=== PATIENT | male | born 1935 | race Caucasian/White ===

== ENCOUNTER 2023-05-18 13:31 | Outpatient (AMB) | payer MEDICARE, SELFPAY ==
--- NOTE | 2023-05-18 13:54 | HO.NEPHOV_ITS ---
HPI HPI Comments History of Present Illness Details I had the privilege of seeing Grayson in follow-up of his chronic kidney disease. He feels well. He is not a diabetic. He has been having prostatic issues. He denies hematuria, edema. His blood pressure has been well controlled. He avoids nonsteroidal inflammatory medications, maintain good hydration and take low-sodium diet. His serum creatinine has been stable. [facility] Medical History (Updated 05/31/23 @ 22:08 by Maurilio Busch MD) Benign prostatic hyperplasia Chronic kidney disease, stage 3a Surgical History (Updated 05/18/23 @ 13:52 by Kate Thomason MA) History of appendectomy Social History (Updated 05/18/23 @ 14:00 by Kate Thomason MA) Alcohol intake: never Patient Tobacco Use Status: Never used Tobacco Vital Signs 05/18/23 13:55 Height 5 ft 6 in Weight 130 lb BMI 21.0 BP 162/80 H Blood Pressure Location Lt brachial Position Sitting Pulse 78 Pulse Source Pulse Oximeter Physical Exam Vital Signs: Last Vital Signs Pulse 78 05/18/23 13:55 BP 162/80 H 05/18/23 13:55 BMI result Body Mass Index 21.0 Const General: comfortable and no acute distress Orientation/consciousness: patient oriented x3 HEENT Head: Yes normocephalic Mouth: Normal oral and palatal mucosa present Eyes EOM: EOMs intact bilaterally Neck Neck: Yes supple Resp Auscultation: clear to auscultation bilaterally Cardio Jugular venous distension: no JVD Rate: regular rate GI Palpation (GI): Soft to palpation Auscultation: normal bowel sounds General: Yes no CVA tenderness Back/Spine/Pelvis Back: no CVA tenderness Skin General skin exam: no rashes or lesions noted Neuro General: patient oriented x3 and moves all extremities Extrem General: Yes no pedal edema Assessment & Plan Assessment & Plan (1) Chronic kidney disease, stage 3a: Code(s): N18.31 - Chronic kidney disease, stage 3a (2) Hypertension: Code(s): I10 - Essential (primary) hypertension Qualifiers: Hypertension type: primary hypertension Qualified Code(s): I10 - Essential (primary) hypertension (3) Benign prostatic hyperplasia: Code(s): N40.0 - Benign prostatic hyperplasia without lower urinary tract symptoms Plan Graysno has 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 His serum creatinine is stable. His ultrasound was normal. His CKD workup had been negative so far. He is on Flomax the dose of which I had increased today due to lack of improvement in symptoms. He avoids nonsteroidal anti-inflammatories. I did not make any other medication changes today. Answered all questions. Follow-up lab work ordered. Follow-up appointment given. Medications: New tamsulosin Take it in the evening 0.8 mg (2 x 0.4 mg) PO DAILY 180 caps 3RF 90 days amlodipine 5 mg PO DAILY 90 tabs 3RF 90 days Coding Level of Care Code Est Pt Level 4 (48422) Diagnoses Chronic kidney disease, stage 3a N18.31 Primary hypertension I10 Hypertension type: primary hypertension Benign prostatic hyperplasia N40.0 Results Reviewed Nephrology Results: No Data to Display
[2023-05-18 13:55] VITALS: BP 162/80; PULSE 78; BMI 21.0
== END 2023-05-18 14:21 | disposition home or self-care (01) ==
PROVIDERS: PCP Internal Medicine; Visit Provider Internal Medicine Nephrology
DX: N18.31 Chronic kidney disease, stage 3a (principal); I10 Essential (primary) hypertension; N40.0 Benign prostatic hyperplasia without lower urinary tract symptoms
CPT/HCPCS: 99214

== ENCOUNTER → 2023-05-18 13:31 | Outpatient (BNVA) | payer MEDICARE, SELFPAY | PROVIDERS: PCP Internal Medicine; Visit Provider Internal Medicine Nephrology | DX: I12.9 Hypertensive chronic kidney disease with stage 1 through stage 4 chronic kidney disease, or unspecified chronic kidney disease (principal); N18.31 Chronic kidney disease, stage 3a | CPT/HCPCS: 99212 ==

== ENCOUNTER 2023-07-06 09:34 | Outpatient (REF) | payer MEDICARE, SELFPAY ==
[2023-07-06 12:56] LABS: Appearance Urine Clear; Color Urine Yellow; Glucose Urine UA Negative (Negative); Leukocyte Esterase Urine Small (1+) (Negative); Nitrite Urine Negative (Negative); Specific Gravity - Urine 1.015 (1.005-1.025); UMIC TRIGGER UA YES; Urine Blood Negative (Negative); Urine Ketones Negative (Negative); Urine Protein Negative (Neg-Trace)
[2023-07-06 12:58] LABS: Bacteria Urine None Seen (None Seen); Hyaline Casts Urine 0-2 /LPF (0-2); RBC Urine 0-2 /HPF (0-2); Squamous Epithelial Cell Urine 0-2 /HPF (0-2)
[2023-07-06 13:34] LABS: Anion Gap 9 (12-20); Blood Urea Nitrogen 18 mg/dL (9-16); Calcium 9.1 mg/dL (8.4-10.2); Carbon Dioxide 27 mmol/L (22-29); Chloride 108 mmol/L (96-108); Estimated Glomerular Filt Rate 48; Potassium 4.1 mmol/L (3.3-5.1); Sodium 140 mmol/L (135-145)
[2023-07-06 15:14] LABS: PSA,Total (Free>4and<10) 1.69 ng/mL (0.00-4.00)
== END 2023-07-06 09:35 | disposition home or self-care (01) ==
LOC: HO.HKASLDS 09:34
PROVIDERS: Visit Provider Internal Medicine Nephrology
DX: I12.9 Hypertensive chronic kidney disease with stage 1 through stage 4 chronic kidney disease, or unspecified chronic kidney disease (principal); N18.31 Chronic kidney disease, stage 3a; N40.0 Benign prostatic hyperplasia without lower urinary tract symptoms; Z12.5 Encounter for screening for malignant neoplasm of prostate
CPT/HCPCS: 36415; 80051; 81001; 82310; 82565; 84153; 84520; 87086

== ENCOUNTER → 2023-07-30 08:58 | Outpatient (BNVA) | payer MEDICARE, SELFPAY | PROVIDERS: PCP Internal Medicine; Visit Provider Nurse Practitioner Family | DX: N39.43 Post-void dribbling (principal); R39.9 Unspecified symptoms and signs involving the genitourinary system | CPT/HCPCS: 51798; 81003; 99202 ==

== ENCOUNTER 2023-07-30 09:07 | Outpatient (AMB) | payer MEDICARE, SELFPAY ==
--- NOTE | 2023-07-30 09:08 | A.OFFVIS_ITS ---
Intake Intake Visit Reasons: BHP CKD, stage 3 Intake Note: New Patient presents for initial visit for BPH Urology Medications: tamsulosin Blood Thinner: none PVR: 43ml Checkout Supervisor Required: No Accompanied by: Self / Same As Patient Allergies house dust Allergy (Verified 07/30/23 09:39) Unknown mold Allergy (Verified 07/30/23 09:39) Unknown Medication List - Last Reconciled 07/30/23 by Nay Rai, [facility]- amlodipine 5 mg PO DAILY 90 days ergocalciferol (vitamin D2) 1,250 mcg PO QWEEK folic acid 1 mg PO DAILY levothyroxine 175 mcg PO QAM tamsulosin 0.8 mg (2 x 0.4 mg) PO DAILY 90 days HPI HPI Comments History of Present Illness Details Grayson is an 87-year-old male patient of Dr. Grewal. He has a past medical history of BPH and chronic kidney disease. He presents to the office today as a new patient for urinary dribbling. He reports symptoms have been present for quite some time however feels they continue to worsen. He reports being prescribed Flomax by his trestle mechanic Dr. Tavares and feels this has been helpful with his weak stream however he continues with urinary dri bbling and intermittent episodes of dysuria with initiation of urinary stream. He otherwise denies urinary urgency, urinary frequency, incontinence, hematuria, foul smelling urine, flank pain, fever, and or chills. He does report episodes of nocturia however relates this to his increased consumption of fluids prior to bed. In discussion with the patient today regarding treatment options for lower urinary tract symptoms he discusses feeling that although he experiences these symptoms he does not feel they are bothersome. Discussed obtaining retroperitoneal ultrasound for further assessment evaluation. In office urinalysis results reviewed with the patient today. PVR 43ml's. He discusses feeling his main concern is his who lives in a assisted living. He otherwise denies any other issues or concerns at this time. In review of patient's chart it appears PSA 07/07--1.7 PFSH Medical History Benign prostatic hyperplasia Chronic kidney disease, stage 3a Surgical History History of appendectomy Social History Alcohol intake: never Patient Tobacco Use Status: Never used Tobacco Review of Systems Const All systems reviewed & are unremarkable except as noted in HPI and below Physical Exam Const General: cooperative, comfortable, no acute distress, well developed, alert and awake Nutritional Appearance: thin Orientation/consciousness: patient oriented x3 HEENT Head: Yes normal to inspection, Yes normocephalic and Yes atraumatic Ears: hearing grossly normal bilaterally Eyes General: appearance normal, both eyes and all related structures Neck Neck: Yes normal visual inspection and Yes trachea midline Chest Chest palpation & inspection: normal inspection of the chest Resp Effort & Inspection: normal respiratory effort and able to speak in complete sentences Cardio Rate: regular rate GI Inspection: Yes normal to inspection General: Yes no CVA tenderness Back/Spine/Pelvis Back: no CVA tenderness Skin General skin exam: no rashes or lesions noted Neuro General: patient oriented x3 Extrem General: Yes normal to inspection Psych Appearance: grossly normal and well kempt Mental Status: mental status grossly normal Speech and movement: Normal speech and movement present and Clear speech present Affect: normal affect Attitude: cooperative Thought process: Normal thought process present Thought content: Normal thought content present Insight: Fair insight present (Psych) Judgement: Fair judgement present (Psych) Office Procedures Post Void Residual Post Residual Void Post Void Residual (PVR): 43 [id number] Void Residual by ultrasound Results AMB Urinalysis, Automated UA Leukoctes 0 Osman/uL Last Edit by Sonya Barajas CMA on 07/30/23 09 :26 UA Nitrite Negative Last Edit by Sonya Barajas CMA on 07/30/23 09: 26 UA Urobilinogen 0.2 mg/dL Last Edit by Sonya Barajas CMA on 4 09:26 UA Protein 15 mg/dL Last Edit by Sonya Barajas CMA on 07/30/23 09:2 6 UA pH 6.0 Last Edit by Sonya Barajas CMA on 07/30/23 09:26 UA Blood 0 Kal/uL Last Edit by Sonya Barajas CMA on 07/30/23 09:26 UA Specific [place] 1.030 Last Edit by Sonya Barajas CMA on 09:26 UA Ketone Negative Last Edit by Sonya Barajas CMA on 07/30/23 09:2 6 UA Bilirubin 1 mg/dL Last Edit by Sonya Barajas CMA on 07/30/23 09: 26 UA Glucose 0 mg/dL Last Edit by Sonya Barajas CMA on 07/30/23 09:26 Results Reviewed Results Reviewed: Laboratory Last Values Urine pH (Auto) 6.0 07/30/23 09:10 Specific [place] (Auto) 1.030 07/30/23 09:10 Urine Protein (Auto) 15 mg/dL 07/30/23 09:10 Glucose (UA)(Auto) 0 mg/dL 07/30/23 09:10 Urine Ketones (Auto) Negative 07/30/23 09:10 Urine Blood (Auto) 0 Kal/uL 07/30/23 09:10 Urine Nitrite (Auto) Negative 07/30/23 09:10 Urine Bilirubin (Auto) 1 mg/dL 07/30/23 09:10 Urine Urobilinogen (Auto) 0.2 mg/dL 07/30/23 09:10 Leukocyte Esterase (Auto) 0 Osman/uL 07/30/23 09:10 Assessment & Plan Assessment & Plan (1) Urinary dribbling: Code(s): N39.43 - Post-void dribbling (2) Lower urinary tract symptoms: Code(s): R39.9 - Unspecified symptoms and signs involving the genitourinary system Plan In office urinalysis results reviewed with the patient today; as noted above. Recent PSA results reviewed with the patient today; as noted above. PVR 43ml's Continue Flomax as discussed and prescribed. Will obtain retroperitoneal ultrasound for further assessment evaluation. Discussed potential for near future in office cystoscopy for further assessment evaluation and or urodynamics. Discussed at length potential causes for lower urinary tract symptoms patient is experiencing. Discussed importance of limiting fluids 2-3 hours prior to bed to assist with decreasing episodes of nocturia. Orders: Orders US retroperitoneal comp 07/30/23 N39.43 - Post-void dribbling AMB Urinalysis Automated 07/30/23 R33.9 - Retention of urine, unspecified AMB Post Void Residual by ultrasound 07/30/23 R33.9 - Retention of urine, unspecified Patient Instructions: The patient had an opportunity to ask questions regarding the treatment plan. All questions were answered. Physical exam, labs, and imaging were discussed and reviewed in detail. As well as risks, benefits, and discussion of treatment choices. No major barriers to understanding were identified. The patient express ed understanding and agreement with the above treatment plan. The patient was made aware they should contact our office by phone for worsening of their current condition, the appearance of new symptoms, or with any questions or concerns. Compliance is encouraged with any medications and follow up testing that is ordered. It is a privilege to be allowed the opportunity to participate in? your urological care.? Again, if you have any questions or concerns If you have any questions or concerns please do not hesitate to contact me. The office is [phone]. This note is constructed using voice recognition software. While every effort has been made to ensure accuracy electronics parts sales representative errors may have been included. Yours sincerely, GALINA Appiah Coding Level of Care Code New Pt Level 3 (11039) Diagnoses Urinary dribbling N39.43 Lower urinary tract symptoms R39.9 CPT Codes Post Residual Void - PVR CPT Code: [id number]-[id number] Void Residual by ultrasound ([id number])
== END 2023-07-30 10:11 | disposition home or self-care (01) ==
PROVIDERS: PCP Internal Medicine; Visit Provider Nurse Practitioner Family
DX: N39.43 Post-void dribbling (principal); R39.9 Unspecified symptoms and signs involving the genitourinary system
CPT/HCPCS: 99203; 99213

== ENCOUNTER 2023-09-14 11:15 | Outpatient (REF) | payer MEDICARE, SELFPAY ==
--- NOTE | ~2023-09-14 | US_ITS ---
EXAMINATION: US RETROPERITONEAL LIMITED (RENAL ONLY) CLINICAL INFORMATION: Postvoid dribbling. COMPARISON: None available. TECHNIQUE: Real-time imaging of the kidneys. FINDINGS: RIGHT KIDNEY: 9.4 x 4.5 x 4.6 cm (SAG x AP x TRV). The kidney is normal in size, contour, and echogenicity. Renal cortical thickness is normal. No calculi or focal parenchymal lesions. No hydronephrosis. LEFT KIDNEY: 9.3 x 4.6 x 4.1 cm (SAG x AP x TRV). The kidney is normal in size, contour, and echogenicity. Renal cortical thickness is normal. No calculi or focal parenchymal lesions. No hydronephrosis. There is a hypertrophic column of [place]. US/US renal BI IMPRESSION: Unremarkable examination.
== END 2023-09-14 11:16 | disposition home or self-care (01) ==
LOC: HO.US 11:15
PROVIDERS: PCP Internal Medicine; Visit Provider Nurse Practitioner Family
DX: N39.43 Post-void dribbling (principal)
CPT/HCPCS: 76775

== ENCOUNTER 2023-09-15 14:12 | Outpatient (REF) | payer MEDICARE, SELFPAY ==
--- NOTE | ~2023-09-15 | US_ITS ---
EXAMINATION: US PELVIS LIMITED (BLADDER) CLINICAL INFORMATION: Urinary dribbling. COMPARISON: September 14, 2023 renal ultrasound TECHNIQUE: Real-time imaging of the bladder. FINDINGS: BLADDER: Well-distended and unremarkable. Bilateral ureteral jets are demonstrated. Prevoid bladder volume is 476 mL. Postvoid bladder volume is 294 mL. Prostate volume 21.2 mL. US/US bladder IMPRESSION: Postvoid bladder volume 294 mL.
== END 2023-09-15 14:13 | disposition home or self-care (01) ==
LOC: HO.US 14:12
PROVIDERS: PCP Internal Medicine; Visit Provider Nurse Practitioner Family
DX: N39.43 Post-void dribbling (principal)
CPT/HCPCS: 76857

== ENCOUNTER 2023-09-21 14:47 | Outpatient (AMB) | payer MEDICARE, SELFPAY ==
[2023-09-21 14:54] VITALS: BP 130/70; PULSE 63; O2SAT 96; BMI 21.8
--- NOTE | 2023-09-21 14:54 | HO.NEPHOV ---
HPI HPI Comments History of Present Illness Details I had the privilege of seeing Grayson in follow-up of his chronic kidney disease. He feels well. He is not a diabetic. He has been having prostatic issues which has improved after increase in Flomax. He denies hematuria, edema. His blood pressure has been well controlled. He avoids nonsteroidal inflammatory medications, maintain good hydration and take low-sodium diet. His serum creatinine has been stable. [facility] Medical History Benign prostatic hyperplasia Chronic kidney disease, stage 3a Surgical History History of appendectomy Social History Alcohol intake: never Patient Tobacco Use Status: Never used Tobacco Vital Signs 09/21/23 14:54 Height 5 ft 6 in Weight 135 lb 6 oz BMI 21.8 BP 130/70 Blood Pressure Location Lt brachial Position Sitting Pulse 63 Pulse Source Pulse Oximeter Pulse Oximetry (%) 96 Oxygen Delivery Method Room Air Physical Exam Vital Signs: Last Vital Signs Pulse 63 09/21/23 14:54 BP 136/70 09/21/23 14:54 Pulse Ox 96 09/21/23 14:54 Oxygen Delivery Method Room Air 09/21/23 14:54 BMI result Body Mass Index 21.8 Const General: comfortable and no acute distress Orientation/consciousness: patient oriented x3 HEENT Head: Yes normocephalic Mouth: Normal oral and palatal mucosa present Eyes EOM: EOMs intact bilaterally Neck Neck: Yes supple Resp Auscultation: clear to auscultation bilaterally Cardio Jugular venous distension: no JVD Rate: regular rate GI Palpation (GI): Soft to palpation Auscultation: normal bowel sounds General: Yes no CVA tenderness Back/Spine/Pelvis Back: no CVA tenderness Skin General skin exam: no rashes or lesions noted Neuro General: patient oriented x3 and moves all extremities Extrem General: Yes no pedal edema Assessment & Plan Assessment & Plan (1) Hypertension: Code(s): I10 - Essential (primary) hypertension Qualifiers: Hypertension type: primary hypertension Qualified Code(s): I10 - Essential (primary) hypertension (2) Chronic kidney disease, stage 3a: Code(s): N18.31 - Chronic kidney disease, stage 3a Plan Grayson has 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 His serum creatinine is stable. His ultrasound was normal. His CKD workup had been negative so far. He is on Flomax the dose of which I had increased at the last visit . He avoids nonsteroidal anti-inflammatories. I did not make any other medication changes today. Answered all questions. Follow-up lab work ordered. Follow-up appointment given. Orders: Orders Creatinine Today I10 - Essential (primary) hypertension, N18.31 - Chronic kidney disease, stage 3a Blood Urea Nitrogen Today I10 - Essential (primary) hypertension, N18.31 - Chronic kidney disease, stage 3a Electrolytes Today I10 - Essential (primary) hypertension, N18.31 - Chronic kidney disease, stage 3a Complete Blood Count Auto Diff Today I10 - Essential (primary) hypertension, N18.31 - Chronic kidney disease, stage 3a Phosphorus Today I10 - Essential (primary) hypertension, N18.31 - Chronic kidney disease, stage 3a Calcium Today I10 - Essential (primary) hypertension, N18.31 - Chronic kidney disease, stage 3a Coding Level of Care Code Est Pt Level 4 (89627) Diagnoses Primary hypertension I10 Hypertension type: primary hypertension Chronic kidney disease, stage 3a N18.31 Results Reviewed Nephrology Results: Sodium 140 mmol/L (135-145) 07/06/23 Potassium 4.1 mmol/L (3.3-5.1) 07/06/23 Chloride 108 mmol/L (96-108) 07/06/23 Carbon Dioxide 27 mmol/L (22-29) 07/06/23 BUN 18 mg/dL (9-16) H 07/06/23 Creatinine 1.40 mg/dL (0.5-1.4) 07/06/23 Calcium 9.1 mg/dL (8.4-10.2) 07/06/23 Urine Protein Negative mg/dL (Neg-Trace) 07/06/23 Renal US 09/14/23
== END 2023-09-21 15:17 | disposition home or self-care (01) ==
PROVIDERS: PCP Internal Medicine; Visit Provider Internal Medicine Nephrology
DX: I10 Essential (primary) hypertension (principal); N18.31 Chronic kidney disease, stage 3a
CPT/HCPCS: 99214

== ENCOUNTER → 2023-09-21 14:47 | Outpatient (BNVA) | payer MEDICARE, SELFPAY | PROVIDERS: PCP Internal Medicine; Visit Provider Internal Medicine Nephrology | DX: I10 Essential (primary) hypertension (principal); N18.31 Chronic kidney disease, stage 3a | CPT/HCPCS: 99212 ==

== ENCOUNTER 2023-09-28 13:37 | Outpatient (AMB) | payer MEDICARE, SELFPAY ==
--- NOTE | 2023-09-28 13:39 | A.OFFVIS_ITS ---
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 Grewal. He has a past medical history of BPH and chronic kidney disease. He presents to the office today for follow-up of his urinary dribbling and weak urinary stream. Of note, patient was seen approximately 2 months ago as a new patient for ongoing lower urinary tract symptoms he had been experiencing at which time a retroperitoneal ultrasound was ordered and his Flomax was increased to 2 capsules per day. Recent retroperitoneal ultrasound results reviewed with the patient today. Bilateral kidneys with no calculi, lesions, and or hydronephrosis. The bladder is well distended and unremarkable. Pre void bladder volume is approximately 475 mL. Postvoid bladder volume is 300 mL. Prostate volume measures approximately 21 mL. He reports noting somewhat improvement in his lower urinary tract symptoms with increase in Flomax. Discussed at length potential causes and affects of incomplete bladder emptying. He otherwise denies urinary urgency, urinary frequency, incontinence, hematuria, foul smelling urine, flank pain, fever, and or chills. He does report episodes of nocturia however relates this to his increased consumption of fluids prior to bed. In office urinalysis results reviewed with the patient today. PVR 4mml's. He discusses feeling his main concern is his who lives in a assisted living. He otherwise denies any other issues or concerns at this time. In review of patient's chart it appears PSA 07/07--1.7. PFSH Medical History Benign prostatic hyperplasia Chronic kidney disease, stage 3a Surgical History History of appendectomy Social History Alcohol intake: never Patient Tobacco Use Status: Never used Tobacco Review of Systems Const All systems reviewed & are unremarkable except as noted in HPI and below Physical Exam Const General: cooperative, comfortable, no acute distress, well developed, alert and awake Nutritional Appearance: thin Orientation/consciousness: patient oriented x3 HEENT Head: Yes normal to inspection, Yes normocephalic and Yes atraumatic Ears: hearing grossly normal bilaterally Eyes General: appearance normal, both eyes and all related structures Neck Neck: Yes normal visual inspection and Yes trachea midline Chest Chest palpation & inspection: normal inspection of the chest Resp Effort & Inspection: normal respiratory effort and able to speak in complete sentences Cardio Rate: regular rate GI Inspection: Yes normal to inspection General: Yes no CVA tenderness Back/Spine/Pelvis Back: no CVA tenderness Skin General skin exam: no rashes or lesions noted Neuro General: patient oriented x3 Extrem General: Yes normal to inspection Psych Appearance: grossly normal and well kempt Mental Status: mental status grossly normal Speech and movement: Normal speech and movement present and Clear speech present Affect: normal affect Attitude: cooperative Thought process: Normal thought process present Thought content: Normal thought content present Insight: Fair insight present (Psych) Judgement: Fair judgement present (Psych) Office Procedures Post Void Residual Post Residual Void Post Void Residual (PVR): 48 [id number] Void Residual by ultrasound Results AMB Urinalysis, Automated UA Leukoctes 0 Osman/uL Last Edit by Santiago Paris on 09/28/23 13:57 UA Nitrite Negative Last Edit by Santiago Paris on 09/28/23 13:57 UA Urobilinogen 0.2 mg/dL Last Edit by Santiago Paris on 09/28/23 13:57 UA Protein 0 mg/dL Last Edit by Santiago Paris on 09/28/23 13:57 UA pH 6.0 Last Edit by Santiago Paris on 09/28/23 13:57 UA Blood 0 Kal/uL Last Edit by Santiago Paris on 09/28/23 13:57 UA Specific [place] 1.005 Last Edit by Santiago Paris on 09/28/23 13:57 UA Ketone Negative Last Edit by Santiago Paris on 09/28/23 13:57 UA Bilirubin 0 mg/dL Last Edit by Santiago Paris on 09/28/23 13:57 UA Glucose 0 mg/dL Last Edit by Santiago Paris on 09/28/23 13:57 Results Reviewed Results Reviewed: Laboratory Last Values Urine pH (Auto) 6.0 09/28/23 13:47 Specific [place] (Auto) 1.005 09/28/23 13:47 Urine Protein (Auto) 0 mg/dL 09/28/23 13:47 Glucose (UA)(Auto) 0 mg/dL 09/28/23 13:47 Urine Ketones (Auto) Negative 09/28/23 13:47 Urine Blood (Auto) 0 Kal/uL 09/28/23 13:47 Urine Nitrite (Auto) Negative 09/28/23 13:47 Urine Bilirubin (Auto) 0 mg/dL 09/28/23 13:47 Urine Urobilinogen (Auto) 0.2 mg/dL 09/28/23 13:47 Leukocyte Esterase (Auto) 0 Osman/uL 09/28/23 13:47 Date of Service: 09/14/23 EXAMINATION: US RETROPERITONEAL LIMITED (RENAL ONLY) FINDINGS: RIGHT KIDNEY: 9.4 x 4.5 x 4.6 cm (SAG x AP x TRV). The kidney is normal in size, contour, and echogenicity. Renal cortical thickness is normal. No calculi or focal parenchymal lesions. No hydronephrosis. LEFT KIDNEY: 9.3 x 4.6 x 4.1 cm (SAG x AP x TRV). The kidney is normal in size, contour, and echogenicity. Renal cortical thickness is normal. No calculi or focal parenchymal lesions. No hydronephrosis. There is a hypertrophic column of [place]. IMPRESSION: Unremarkable examination. Date of Service: 09/15/23 Procedure(s): US bladder EXAMINATION: US PELVIS LIMITED (BLADDER) FINDINGS: BLADDER: Well-distended and unremarkable. Bilateral ureteral jets are demonstrated. Prevoid bladder volume is 476 mL. Postvoid bladder volume is 294 mL. Prostate volume 21.2 mL. IMPRESSION: Postvoid bladder volume 294 mL. Assessment & Plan Assessment & Plan (1) Lower urinary tract symptoms: Code(s): R39.9 - Unspecified symptoms and signs involving the genitourinary system (2) Benign prostatic hyperplasia: Code(s): N40.0 - Benign prostatic hyperplasia without lower urinary tract symptoms (3) Incomplete bladder emptying: Code(s): R33.9 - Retention of urine, unspecified (4) Weak urinary stream: Code(s): R39.12 - Poor urinary stream Plan In office urinalysis results reviewed with the patient today; as noted above. PVR 48 mL. Stop Flomax. Start terazosin 5 mg at bedtime. Discussed at length potential causes and affects of incomplete bladder emptying. Most recent retroperitoneal ultrasound results reviewed with the patient today; as noted above. Discussed possible near future in office cystoscopy if symptoms persist and/or worsen. Discussed importance of limiting fluids 2-3 hours prior to bed to decrease episodes of nocturia. Follow-up in 6-8 weeks with PVR; or sooner with any issues, concerns, and or questions. Orders: Orders AMB Post Void Residual by ultrasound Today R39.9 - Unspecified symptoms and signs involving the genitourinary system AMB Urinalysis Automated Today R39.9 - Unspecified symptoms and signs involving the genitourinary system, Z13.9 - Encounter for screening, unspecified Medications: New terazosin 5 mg PO BEDTIME 30 caps 2RF 30 days N40.1 - Benign prostatic hyperplasia with lower urinary tract symptoms, R35.0 - Frequency of micturition Discontinued tamsulosin Take it in the evening Discontinued Reason: Doctor's Order 0.8 mg (2 x 0.4 mg) PO DAILY 180 caps 3RF 90 days Patient Instructions: The patient had an opportunity to ask questions regarding the treatment plan. All questions were answered. Physical exam, labs, and imaging were discussed and reviewed in detail. As well as risks, benefits, and discussion of treatment choices. No major barriers to understanding were identified. The patient expressed understanding and agreement with the above treatment plan. The patient was made aware they should contact our office by phone for worsening of their current condition, the appearance of new symptoms, or with any questions or concerns. Compliance is encouraged with any medications and follow up testing that is ordered. It is a privilege to be allowed the opportunity to participate in? your urological care.? Again, if you have any questions or concerns If you have any questions or concerns please do not hesitate to contact me. The office is [phone]. This note is constructed using voice recognition software. While every effort has been made to ensure accuracy reeling and tubing machine operator errors may have been included. Yours sincerely, GALINA Appiah Coding Level of Care Code Est Pt Level 4 (76382) Diagnoses Lower urinary tract symptoms R39.9 Benign prostatic hyperplasia N40.0 Incomplete bladder emptying R33.9 Weak urinary stream R39.12 CPT Codes Post Residual Void - PVR CPT Code: 87672-Tngv Void Residual by ultrasound ([id number])
== END 2023-09-28 14:08 | disposition home or self-care (01) ==
PROVIDERS: PCP Internal Medicine; Visit Provider Nurse Practitioner Family
DX: R39.9 Unspecified symptoms and signs involving the genitourinary system (principal); N40.0 Benign prostatic hyperplasia without lower urinary tract symptoms; R33.9 Retention of urine, unspecified; R39.12 Poor urinary stream
CPT/HCPCS: 99214

== ENCOUNTER → 2023-09-28 13:37 | Outpatient (BNVA) | payer MEDICARE, SELFPAY | PROVIDERS: PCP Internal Medicine; Visit Provider Nurse Practitioner Family | DX: N40.1 Benign prostatic hyperplasia with lower urinary tract symptoms (principal); R33.9 Retention of urine, unspecified; R39.12 Poor urinary stream | CPT/HCPCS: 51798; 81003; 99212 ==

== ENCOUNTER 2023-11-23 13:29 | Outpatient (AMB) | payer MEDICARE, SELFPAY ==
--- NOTE | 2023-11-23 13:52 | MHC.OFFVIS ---
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 Grewal. He has a past medical history of BPH and chronic kidney disease. He presents to the office today for follow-up of his urinary dribbling and weak urinary stream. In discussion with the patient today he reports to be doing and feeling well. He reports feeling somewhat improvement in his lower urinary tract symptoms with terazosin 5 mg at bedtime. Previous workup has included a retroperitoneal ultrasound noting bilateral kidneys with no calculi, lesions, and or hydronephrosis. The bladder is well distended and unremarkable. Pre void bladder volume is approximately 475 mL. Postvoid bladder volume is 300 mL. Prostate volume measures approximately 21 mL. He had previously trialed Flomax however did not find this helpful. In office urinalysis results reviewed with the patient today. PVR 0 mL. PH 5.5. Discussed importance of adequate hydration. He otherwise denies urinary urgency, urinary frequency, incontinence, hematuria, foul smelling urine, flank pain, fever, and or chills. He otherwise denies any other issues or concerns at this time. In review of patient's chart it appears PSA 07/07--1.7. PFSH Medical History Benign prostatic hyperplasia Chronic kidney disease, stage 3a Surgical History History of appendectomy Social History Alcohol intake: never Patient Tobacco Use Status: Never used Tobacco Review of Systems Const All systems reviewed & are unremarkable except as noted in HPI and below Physical Exam Const General: cooperative, healthy appearing, comfortable, no acute distress, well developed, alert and awake Nutritional Appearance: thin Orientation/consciousness: patient oriented x3 Limitations: no limitations HEENT Head: Yes normal to inspection, Yes normocephalic and Yes atraumatic Ears: hearing grossly normal bilaterally Eyes General: appearance normal, both eyes and all related structures Neck Neck: Yes normal visual inspection and Yes trachea midline Chest Chest palpation & inspection: normal inspection of the chest Resp Effort & Inspection: normal respiratory effort and able to speak in complete sentences Cardio Rate: regular rate GI Inspection: Yes normal to inspection General: Yes no CVA tenderness Back/Spine/Pelvis Back: no CVA tenderness Skin General skin exam: no rashes or lesions noted Neuro General: patient oriented x3 Extrem General: Yes normal to inspection Psych Appearance: grossly normal and well kempt Mental Status: mental status grossly normal Speech and movement: Normal speech and movement present and Clear speech present Affect: normal affect Attitude: cooperative Thought process: Normal thought process present Thought content: Normal thought content present Insight: Fair insight present (Psych) Judgement: Fair judgement present (Psych) Office Procedures Post Void Residual Post Residual Void Post Void Residual (PVR): 0 [id number] Void Residual by ultrasound Results AMB Urinalysis, Automated UA Leukoctes 15 Osman/uL Last Edit by Coltello Ristorante on 11/23/23 14:03 UA Nitrite Negative Last Edit by Coltello Ristorante on 11/23/23 14:03 UA Urobilinogen 0.2 mg/dL Last Edit by Coltello Ristorante on 11/23/23 14:03 UA Protein 15 mg/dL Last Edit by Coltello Ristorante on 11/23/23 14:03 UA pH 5.5 Last Edit by Coltello Ristorante on 11/23/23 14:03 UA Blood 0 Kal/uL Last Edit by Coltello Ristorante on 11/23/23 14:03 UA Specific [place] 1.025 Last Edit by Coltello Ristorante on 11/23/23 14:03 UA Ketone Positive Last Edit by Coltello Ristorante on 11/23/23 14:03 UA Bilirubin 1 mg/dL Last Edit by Coltello Ristorante on 11/23/23 14:03 UA Glucose 0 mg/dL Last Edit by Santiago Paris on 11/23/23 14:03 Results Reviewed Results Reviewed: Laboratory Last Values Urine pH (Auto) 5.5 11/23/23 13:55 Specific [place] (Auto) 1.025 11/23/23 13:55 Urine Protein (Auto) 15 mg/dL 11/23/23 13:55 Glucose (UA)(Auto) 0 mg/dL 11/23/23 13:55 Urine Ketones (Auto) Positive 11/23/23 13:55 Urine Blood (Auto) 0 Akl/uL 11/23/23 13:55 Urine Nitrite (Auto) Negative 11/23/23 13:55 Urine Bilirubin (Auto) 1 mg/dL 11/23/23 13:55 Urine Urobilinogen (Auto) 0.2 mg/dL 11/23/23 13:55 Leukocyte Esterase (Auto) 15 Osman/uL 11/23/23 13:55 Assessment & Plan Assessment & Plan (1) Lower urinary tract symptoms: Code(s): R39.9 - Unspecified symptoms and signs involving the genitourinary system Category: Medical (2) Benign prostatic hyperplasia: Code(s): N40.0 - Benign prostatic hyperplasia without lower urinary tract symptoms Category: Medical (3) Incomplete bladder emptying: Code(s): R33.9 - Retention of urine, unspecified Category: Medical (4) Weak urinary stream: Code(s): R39.12 - Poor urinary stream Category: Medical Plan In office urinalysis results reviewed with the patient today; as noted above. PVR 0 mL. Patient currently denies any bothersome urinary issues or concerns. He reports be happy with current voiding parameters on terazosin 5 mg at bedtime; will continue. Discussed possible near future in office cystoscopy if symptoms arise and or worsen. Discussed importance of limiting fluids 2-3 hours prior to bed to decrease episodes of nocturia. Follow-up in 6 months with PSA and PVR; or sooner with any issues, concerns, and or questions. Orders: Orders Prostate Specific Antigen 6 Months N40.0 - Benign prostatic hyperplasia without lower urinary tract symptoms, R33.9 - Retention of urine, unspecified, R39.12 - Poor urinary stream AMB Urinalysis Automated Today Z13.9 - Encounter for screening, unspecified AMB Post Void Residual by ultrasound Today R39.12 - Poor urinary stream Patient Instructions: The patient had an opportunity to ask questions regarding the treatment plan. All questions were answered. Physical exam, labs, and imaging were discussed and reviewed in detail. As well as risks, benefits, and discussion of treatment choices. No major barriers to understanding were identified. The patient expressed understanding and agreement with the above treatment plan. The patient was made aware they should contact our office by phone for worsening of their current condition, the appearance of new symptoms, or with any questions or concerns. Compliance is encouraged with any medications and follow up testing that is ordered. It is a privilege to be allowed the opportunity to participate in? your urological care.? Again, if you have any questions or concerns If you have any questions or concerns please do not hesitate to contact me. The office is [phone]. This note is constructed using voice recognition software. While every effort has been made to ensure accuracy mortgage protection sales errors may have been included. Yours sincerely, GALINA Appiah Coding Level of Care Code Est Pt Level 3 (33404) Diagnoses Lower urinary tract symptoms R39.9 Benign prostatic hyperplasia N40.0 Incomplete bladder emptying R33.9 Weak urinary stream R39.12 CPT Codes Post Residual Void - PVR CPT Code: 47457-Rdqf Void Residual by ultrasound ([id number])
== END 2023-11-23 14:20 | disposition home or self-care (01) ==
PROVIDERS: PCP Internal Medicine; Visit Provider Nurse Practitioner Family
DX: R39.9 Unspecified symptoms and signs involving the genitourinary system (principal); N40.0 Benign prostatic hyperplasia without lower urinary tract symptoms; R33.9 Retention of urine, unspecified; R39.12 Poor urinary stream; Z13.9 Encounter for screening, unspecified
CPT/HCPCS: 99213

== ENCOUNTER → 2023-11-23 13:29 | Outpatient (BNVA) | payer MEDICARE, SELFPAY | PROVIDERS: PCP Internal Medicine; Visit Provider Nurse Practitioner Family | DX: R39.9 Unspecified symptoms and signs involving the genitourinary system (principal); N40.1 Benign prostatic hyperplasia with lower urinary tract symptoms; R33.9 Retention of urine, unspecified; R39.12 Poor urinary stream | CPT/HCPCS: 51798; 81003; 99212 ==

== ENCOUNTER 2024-01-04 14:41 | Outpatient (REF) | payer MEDICARE, SELFPAY ==
[2024-01-04 17:27] LABS: MANUAL DIFF FLAG NO
[2024-01-04 17:35] LABS: Appearance Urine Clear; Color Urine Yellow; Glucose Urine UA Negative (Negative); Leukocyte Esterase Urine Small (1+) (Negative); Nitrite Urine Negative (Negative); PH 6.5 (5.0-9.0); UMIC TRIGGER UA YES; Urine Blood Negative (Negative); Urine Ketones Trace mg/dL (Negative); Urine Protein Trace mg/dL (Neg-Trace)
[2024-01-04 17:41] LABS: Basophils Percent Auto 1.1 % (0-2); Eosinophils Absolute Auto 0.2 X10*3/uL (0.0-0.4); Eosinophils Percent Auto 5.4 % (0-4); Hematocrit 38.3 % (42.0-52.0); Hemoglobin 12.9 g/dl (14.0-18.0); Lymphocytes Percent Auto 27.7 % (20-40); Mean Corpuscular HGB Conc 33.7 g/dl (31.0-36.0); Mean Corpuscular Hemoglobin 31.3 pg (27.0-33.0); Mean Platelet Volume 10.2 fL (9.4-12.4); Monocytes Absolute Auto 0.4 X10*3/uL (0.1-1.2); Monocytes Percent Auto 10.9 % (2-11); Neutrophils Absolute Auto 1.9 x10*3/uL (2.0-8.3); Neutrophils Percent Auto 54.9 % (45-73); Platelet Count 209 X10*3/uL (160-400); Red Blood Count 4.12 X10*6/uL (4.60-5.80); Red Cell Distribution Width 13.6 % (11.0-16.0); White Blood Count 3.5 X10*3/uL (4.8-10.8)
[2024-01-04 17:49] LABS: Anion Gap 12 (12-20); Blood Urea Nitrogen 21 mg/dL (9-16); Calcium 9.1 mg/dL (8.4-10.2); Carbon Dioxide 24 mmol/L (22-29); Chloride 107 mmol/L (96-108); Estimated Glomerular Filt Rate 48; Phosphorus 2.5 mg/dL (2.7-4.5); Potassium 4.5 mmol/L (3.3-5.1); Sodium 138 mmol/L (135-145)
[2024-01-04 18:02] LABS: Bacteria Urine None Seen (None Seen); Hyaline Casts Urine 0-2 /LPF (0-2); RBC Urine 0-2 /HPF (0-2); Squamous Epithelial Cell Urine 0-2 /HPF (0-2); WBC Urine 0-5 /HPF (0-5)
[2024-01-04 18:14] LABS: Prostate Specific Antigen 1.41 ng/mL (<0.05-4.0)
== END 2024-01-04 14:42 | disposition home or self-care (01) ==
LOC: HO.HKASLDS 14:41
PROVIDERS: Nurse Practitioner Family; Visit Provider Internal Medicine Nephrology
DX: I10 Essential (primary) hypertension (principal); N18.31 Chronic kidney disease, stage 3a; N40.0 Benign prostatic hyperplasia without lower urinary tract symptoms; R39.12 Poor urinary stream; R33.9 Retention of urine, unspecified; Z12.5 Encounter for screening for malignant neoplasm of prostate
CPT/HCPCS: 36415; 80051; 81001; 82310; 82565; 84100; 84153; 84520; 85025

== ENCOUNTER 2024-01-18 13:55 | Outpatient (AMB) | payer MEDICARE, SELFPAY ==
--- NOTE | 2024-01-18 14:26 | HO.NEPHOV_ITS ---
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 He feels well. He is not a diabetic. He has been having prostatic issues which has improved after increase in Flomax. He denies hematuria, edema. His blood pressure has been well controlled. He avoids nonsteroidal inflammatory medications, maintain good hydration and take low-sodium diet. His serum creatinine has been stable. [facility] Medical History Benign prostatic hyperplasia Chronic kidney disease, stage 3a Surgical History History of appendectomy Social History Alcohol intake: never Patient Tobacco Use Status: Never used Tobacco Physical Exam Vital Signs: Last Vital Signs Pulse 66 01/18/24 14:27 BP 114/60 01/18/24 14:27 Pulse Ox 96 01/18/24 14:27 Oxygen Delivery Method Room Air 01/18/24 14:27 Const General: comfortable and no acute distress Orientation/consciousness: patient oriented x3 HEENT Head: Yes normocephalic Mouth: Normal oral and palatal mucosa present Eyes EOM: EOMs intact bilaterally Neck Neck: Yes supple Resp Auscultation: clear to auscultation bilaterally Cardio Jugular venous distension: no JVD Rate: regular rate GI Palpation (GI): Soft to palpation Auscultation: normal bowel sounds General: Yes no CVA tenderness Back/Spine/Pelvis Back: no CVA tenderness Skin General skin exam: no rashes or lesions noted Neuro General: patient oriented x3 and moves all extremities Extrem General: Yes no pedal edema Results Reviewed Nephrology Results: Hgb 12.9 g/dl (14.0-18.0) L 01/04/24 WBC 3.5 X10*3/uL (4.8-10.8) L 01/04/24 Plt Count 209 X10*3/uL (160-400) 01/04/24 Sodium 138 mmol/L (135-145) 01/04/24 Potassium 4.5 mmol/L (3.3-5.1) 01/04/24 Chloride 107 mmol/L (96-108) 01/04/24 Carbon Dioxide 24 mmol/L (22-29) 01/04/24 BUN 21 mg/dL (9-16) H 01/04/24 Creatinine 1.39 mg/dL (0.5-1.4) 01/04/24 Calcium 9.1 mg/dL (8.4-10.2) 01/04/24 Phosphorus 2.5 mg/dL (2.7-4.5) L 01/04/24 Urine Protein Trace mg/dL (Neg-Trace) 01/04/24 Renal US 09/14/23 Assessment & Plan Assessment & Plan (1) Chronic kidney disease, stage 3a: Code(s): N18.31 - Chronic kidney disease, stage 3a Category: Medical (2) Hypertension: Code(s): I10 - Essential (primary) hypertension Category: Medical Qualifiers: Hypertension type: primary hypertension Qualified Code(s): I10 - Essential (primary) hypertension Plan Grayson has 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 His serum creatinine is stable. His ultrasound was normal. His CKD workup had been negative so far. He is on Flomax the dose of which I had increased at the last visit . He avoids nonsteroidal anti- inflammatories. I did not make any other medication changes today. Answered all questions. Follow-up lab work ordered. Follow-up appointment given. Orders: Orders Creatinine Today I10 - Essential (primary) hypertension, N18.31 - Chronic kidney disease, stage 3a Blood Urea Nitrogen Today I10 - Essential (primary) hypertension, N18.31 - Chronic kidney disease, stage 3a Electrolytes Today I10 - Essential (primary) hypertension, N18.31 - Chronic kidney disease, stage 3a Coding Level of Care Code Est Pt Level 4 (56743) Diagnoses Chronic kidney disease, stage 3a N18.31 Primary hypertension I10 Hypertension type: primary hypertension
[2024-01-18 14:27] VITALS: BP 114/60; PULSE 66; O2SAT 96
== END 2024-01-18 14:38 | disposition home or self-care (01) ==
PROVIDERS: PCP Internal Medicine; Visit Provider Internal Medicine Nephrology
DX: N18.31 Chronic kidney disease, stage 3a (principal); I10 Essential (primary) hypertension
CPT/HCPCS: 99214

== ENCOUNTER → 2024-01-18 13:55 | Outpatient (BNVA) | payer MEDICARE, SELFPAY | PROVIDERS: PCP Internal Medicine; Visit Provider Internal Medicine Nephrology | DX: I12.9 Hypertensive chronic kidney disease with stage 1 through stage 4 chronic kidney disease, or unspecified chronic kidney disease (principal); N18.31 Chronic kidney disease, stage 3a | CPT/HCPCS: 99212 ==

== ENCOUNTER 2024-05-31 14:27 | Outpatient (AMB) | payer MEDICARE, SELFPAY ==
--- OUTSIDE RECORDS SUMMARY | 2024-05-31 14:29 | XMS_ITS | Continuity of Care Document ---
Author Organization [facility] [address] [place] [address] Phone [phone] Care Team Providers Care Warehouse Director Name Role Phone Jerome Grewal M.D. Care Team Information Recei dinora [phone] Problems Active Problems Provider Date Celiac disease González Barone M.D. Onset: Secondary hyperparathyroidism Piper Zamorano Onset: 08/05/2022 Hypothyroidism González Barone M.D. Onset: Essential hypertension González Barone M.D. Ons et: 08/05/2023 Social History Type Date Description Comments Sex Unknown Lives With Spouse ETOH Use Denies alcohol use Tobacco Use Start: Unknown Patient has never smoked Smoking Status Reviewed: 02/02/23 Patient has never sm oked Allergies and adverse reactions Description No Known Drug Allergies Medications Active Medications SIG Qnty Indications Ordering Provider Date Vitamin D (Ergocalciferol)1.25mg (16951 Ut) Capsules Take 1 Capsule By Mouth Weekly 12terra Barone M.D. 09/22/2023 Amlodipine [id number] Tablets 1 by mouth every day 90tabs González Barone M.D. 02/02/2023 Vitamin D (Ergocalciferol)79530S nit Capsules take one weekly 12terra Barone M.D. 10/09/2022 [facility] Vitamin [id number] Tablets 1 by mouth every day González Barone M.D. 08/05/2022 Iron (Ferrous Sulfate)325(65Fe) mg Tablets 1 by mouth every day González Barone M.D. 08/05/2022 [id number] Capsules Take 1 Capsule By Mouth Three Times Daily Unknown Levothyroxine [id number] Tablets Take 1 Tablet By Mouth Every Day Jerome Grewal M.D. Folic Csul8ln Tablets Take 1 daily Jerome Moreira M.D. Vital Signs Date Vital Result Comment 08/05/2023 1:09pm BP Systolic 130 mmHg BP Diastolic 72 mmHg Heart Rate 70 /min Height 66 inches 5'6 Weight 133.50 lb BMI (Body Mass Index) 21.5 kg/m2 Results Test Acquired Date Facility Test Result H/L Range N ote Laboratory test finding 02/02/2023 [facility] TSH With Reflex To FT4 3.77 uIU/mL (0.4-4.2) Calcium 9.3 mg/dL (8.6-10.5 ) Albumin 4.7 GM/DL (3.4-4.8) 25Oh Vitamin D 29.1 NG/ML (20-50) Laboratory test finding 10/08/2022 [facility] TSH With Reflex To FT4 4.01 uIU/mL (0.4-4.2) 25Oh Vitamin D 28.5 NG/ML (20-50) Free T4 1.47 ng/dL (0.70-1.8 0) Laboratory test finding 10/08/2022 [facility] 25Oh Vitamin D Duplicate order <SEE NOTE> 1 1 Duplicate order canc elled via interface Medical Devices Description No Information Available Encounters Type Date Location Provider Dx Diagnosis Office Visit 08/05/2023 1:15p Main Office González Barone M.D. E03.9 Hypothyroidism, unspecified K90.0 Celiac disease E21.1 Secondary hyperparat hyroidism, not elsewhere classified I10 Essential (primary) hypertension E55.9 Vitamin D deficiency , unspecified Assessments Date Code Description Provider 08/05/2023 E03.9 Hypothyroidism González guadalupe M.D. 08/05/2023 K90.0 Celiac disease González guadalupe M.D. 08/05/2023 E21.1 Secondary hyperp arathyroidism, not elsewhere classified González Barone M.D. 08/05/2023 I10 Essential hypertension González Barone M.D. 08/05/2023 E55.9 Vitamin D deficiency González wilkins M.D. Plan of Treatment No Information Available Functional Status Description No Information Available Mental Status Description No Information Available Referrals Description No Information Available
--- NOTE | 2024-05-31 14:56 | MHC.OFFVIS ---
Intake Visit Reasons: 6M PSA(SET) Intake Note: Patient is Present for Follow Up PSA Urology Medication: Terazosin Antibiotic Allergies:None Blood Thinners: None Last PVR: 0ml Todays PVR: 0 Irrigation Supervisor Required: No Accompanied by: Self / Same As Patient Allergies house dust Allergy (Verified 05/31/24 14:57) Unknown mold Allergy (Verified 05/31/24 14:57) Unknown HPI Comments Details: Grayson is a pleasant male. He is a patient of Dr. Grewal. Seen for following urologic conditions - lower urinary tract symptoms Lower urinary tract symptoms Low PVR Continue with current medications Month follow-up Prior therapy 5 mg terazosin Imaging PVR 300 cc, prostate 20 cc - normal retroperitoneal ultrasound [facility] Medical History Benign prostatic hyperplasia Chronic kidney disease, stage 3a Surgical History History of appendectomy Social History Alcohol intake: never Patient Tobacco Use Status: Never used Tobacco Review of Systems Const Denies chills and Denies fever(s) Card Reports no additional complaints and Denies syncope Resp Denies cough GI Denies abdominal pain and Denies heartburn Reports as per HPI and Denies change in libido Neuro Denies syncope Psych Denies change in libido Endo Denies change in libido Physical Exam Const General: cooperative, healthy appearing, comfortable and no acute distress Orientation/consciousness: patient oriented x3 HEENT Face and sinus: Yes normal facial exam Mouth: moist mucous membranes Neck Neck: Yes normal visual inspection, Yes full ROM and Yes trachea midline Chest Chest palpation & inspection: normal inspection of the chest Resp Effort & Inspection: normal respiratory effort, able to speak in complete sentences and no respiratory distress GI Inspection: Yes normal to inspection Back/Spine/Pelvis Cervical Spine: normal cervical lordosis Thoracic/Lumbar Spine: thoracic and lumbar spine normal to inspection Skin General skin exam: no rashes or lesions noted Neuro General: patient oriented x3, gait normal, tone normal and moves all extremities Extrem General: Yes normal to inspection and Yes capillary refill normal Office Procedures Post Void Residual Post Residual Void Post Void Residual (PVR): 0 [id number]-Uyjf Void Residual by ultrasound Assessment & Plan Assessment & Plan (1) Benign prostatic hyperplasia: Code(s): N40.0 - Benign prostatic hyperplasia without lower urinary tract symptoms Category: Medical (2) Lower urinary tract symptoms: Code(s): R39.9 - Unspecified symptoms and signs involving the genitourinary system Category: Medical (3) Incomplete bladder emptying: Code(s): R33.9 - Retention of urine, unspecified Category: Medical (4) Weak urinary stream: Code(s): R39.12 - Poor urinary stream Category: Medical Plan Twelve month follow-up Orders: Orders AMB Post Void Residual by ultrasound 05/31/24 R33.9 - Retention of urine, unspecified Medications: Changed From terazosin 5 mg PO BEDTIME 30 days 30 caps 2RF N40.1 - Benign prostatic hyperplasia with lower urinary tract symptoms, R35.0 - Frequency of micturition To terazosin 5 mg PO BEDTIME 90 caps 3RF 90 days N40.1 - Benign prostatic hyperplasia with lower urinary tract symptoms, R35.0 - Frequency of micturition Patient Instructions: Imaging studies, laboratory and physical exam results were discussed and reviewed in detail. No major barriers to patient understanding were identified. An opportunity to ask questions regarding the treatment plan was provided. All questions were answered. The patient expressed understanding and agreement with the above treatment plan. The patient is aware they should contact our office by phone for worsening of their current condition or the appearance of new urologic symptoms. Compliance is encouraged with any medications and followup testing that is ordered. It is a privilege to participate in the urologic care of your patient. If you have any questions or concerns regarding treatment for the above conditions, or other urologic issues, please do not hesitate to contact me. The office telephone contact is [phone]. This note is constructed using voice recognition software. While every effort has been made to ensure accuracy idea man errors may have been included. Yours sincerely, Dr Ashwin Herrera MD, JESSICA [facility] - Urology Providers of Expert, Compassionate Care for the Genitourinary System Coding Level of Care Code Est Pt Level 3 (64698) Diagnoses Benign prostatic hyperplasia N40.0 Lower urinary tract symptoms R39.9 Incomplete bladder emptying R33.9 Weak urinary stream R39.12 CPT Codes Post Residual Void - PVR CPT Code: 54748-Ugms Void Residual by ultrasound ([id number])
== END 2024-05-31 15:43 | disposition home or self-care (01) ==
PROVIDERS: PCP Internal Medicine; Visit Provider Urology
DX: N40.0 Benign prostatic hyperplasia without lower urinary tract symptoms (principal); R39.9 Unspecified symptoms and signs involving the genitourinary system; R33.9 Retention of urine, unspecified; R39.12 Poor urinary stream
CPT/HCPCS: 99213

== ENCOUNTER → 2024-05-31 14:27 | Outpatient (BNVA) | payer MEDICARE, SELFPAY | PROVIDERS: PCP Internal Medicine; Visit Provider Urology | DX: N40.0 Benign prostatic hyperplasia without lower urinary tract symptoms (principal); R39.9 Unspecified symptoms and signs involving the genitourinary system; R33.9 Retention of urine, unspecified; R39.12 Poor urinary stream | CPT/HCPCS: 51798; 99212 ==

== ENCOUNTER 2024-09-14 13:49 | Outpatient (AMB) | payer MEDICARE, SELFPAY ==
--- NOTE | 2024-09-14 14:02 | HO.NEPHOV_ITS ---
Vital Signs 09/14/24 14:03 Height 5 ft 6 in Weight 128 lb 8 oz BMI 20.7 BP 130/60 Blood Pressure Location Lt brachial Position Sitting Pulse 62 Pulse Source Pulse Oximeter Pulse Oximetry (%) 97 Oxygen Delivery Method Room Air Intake Visit Reasons: Chronic kidney disease, stage 3a/ LVM Traveling Accountant Required: No Accompanied by: Self / Same As Patient Allergies house dust Allergy (Verified 09/14/24 14:02) Unknown mold Allergy (Verified 09/14/24 14:02) Unknown HPI Comments Details: I had the privilege of seeing Grayson in follow-up of his chronic kidney disease. He feels well. He is not a diabetic. He has been having prostatic issues which has improved after increase in Flomax. He denies hematuria, edema. His blood pressure has been well controlled. He avoids nonsteroidal inflammatory medications, maintain good hydration and take low-sodium diet. His serum cr eatinine had been stable. [facility] Medical History Benign prostatic hyperplasia Chronic kidney disease, stage 3a Surgical History History of appendectomy Social History Alcohol intake: never Patient Tobacco Use Status: Never used Tobacco Review of Systems Const All systems reviewed & are unremarkable except as noted in HPI and below Physical Exam Vital Signs: Last Vital Signs Pulse 62 09/14/24 14:03 BP 130/60 09/14/24 14:03 Pulse Ox 97 09/14/24 14:03 Oxygen Delivery Method Room Air 09/14/24 14:03 BMI result Body Mass Index 20.7 Const General: comfortable and no acute distress Orientation/consciousness: patient oriented x3 HEENT Head: Yes normocephalic Mouth: Normal oral and palatal mucosa present Eyes EOM: EOMs intact bilaterally Neck Neck: Yes supple Resp Auscultation: clear to auscultation bilaterally Cardio Jugular venous distension: no JVD Rate: regular rate GI Palpation (GI): Soft to palpation Auscultation: normal bowel sounds Skin General skin exam: no rashes or lesions noted Neuro General: patient oriented x3 and moves all extremities Extrem General: Yes no pedal edema Results Reviewed Nephrology Results: Hgb 12.9 g/dl (14.0-18.0) L 01/04/24 WBC 3.5 X10*3/uL (4.8-10.8) L 01/04/24 Plt Count 209 X10*3/uL (160-400) 01/04/24 Sodium 138 mmol/L (135-145) 01/04/24 Potassium 4.5 mmol/L (3.3-5.1) 01/04/24 Chloride 107 mmol/L (96-108) 01/04/24 Carbon Dioxide 24 mmol/L (22-29) 01/04/24 BUN 21 mg/dL (9-16) H 01/04/24 Creatinine 1.39 mg/dL (0.5-1.4) 01/04/24 Calcium 9.1 mg/dL (8.4-10.2) 01/04/24 Phosphorus 2.5 mg/dL (2.7-4.5) L 01/04/24 Urine Protein Trace mg/dL (Neg-Trace) 01/04/24 Renal US 09/14/23 Assessment & Plan Assessment & Plan (1) Chronic kidney disease, stage 3a: Code(s): N18.31 - Chronic kidney disease, stage 3a Category: Medical (2) Hypertension: Code(s): I10 - Essential (primary) hypertension Category: Medical Qualifiers: Hypertension type: primary hypertension Qualified Code(s): I10 - Essential (primary) hypertension Plan Grayson has 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 His serum creatinine had been stable. His ultrasound was normal. His CKD workup had been negative so far. He is on Flomax the dose of which I had increased in the previous visit . He avoids nonsteroidal anti- inflammatories. I did not make any other medication changes today. Answered all questions. Follow-up lab work ordered. Follow-up appointment given. Orders: Orders Blood Urea Nitrogen Today I10 - Essential (primary) hypertension, N18.31 - Chronic kidney disease, stage 3a Electrolytes Today I10 - Essential (primary) hypertension, N18.31 - Chronic kidney disease, stage 3a Calcium Today I10 - Essential (primary) hypertension, N18.31 - Chronic kidney disease, stage 3a Phosphorus Today I10 - Essential (primary) hypertension, N18.31 - Chronic kidney disease, stage 3a Complete Blood Count Auto Diff Today I10 - Essential (primary) hypertension, N18.31 - Chronic kidney disease, stage 3a Creatinine Today I10 - Essential (primary) hypertension, N18.31 - Chronic kidney disease, stage 3a Parathyroid Hormone Intact Today I10 - Essential (primary) hypertension, N18.31 - Chronic kidney disease, stage 3a Vitamin D 25-OH Total Today I10 - Essential (primary) hypertension, N18.31 - Chronic kidney disease, stage 3a Coding Level of Care Code Est Pt Level 4 (45936) Diagnoses Chronic kidney disease, stage 3a N18.31 Primary hypertension I10 Hypertension type: primary hypertension
[2024-09-14 14:03] VITALS: BP 130/60; PULSE 62; O2SAT 97; BMI 20.7
--- OUTSIDE RECORDS SUMMARY | 2024-09-14 15:14 | XMS_ITS | Clinical Summary ---
Author Organization [facility] Address [address] [address] Phone Care Team Providers Care Cloth Desizing Range Tender Name Role Phone Horacio Shelton MD Primary Care Provide r Allergies No known active allergies Medications folic acid (FOLVITE) 1 MG tablet Take 1,000 mcg by mouth 1 (one) time each day 09/01/2021 Active levothyroxine (SYNTHROID, LEVOTHROID) 175 MCG tablet Take 175 mcg by mouth 1 (one) time each day 10/08/2022 Active ergocalciferol 1.25 MG (69816 UT) capsule Take 50,000 Units by mouth 1 (one) time per week 10/09/2022 Active Active Problems Problem Noted Date Diagnosed Date Benign prostatic hyperplasia 10/29/2022 Celiac disease 08/05/2022 Hypothyroidism 08/05/2022 Secondary hyperparathyroidism 08/05/2022 Stage 3a chronic kidney disease 09/15/2021 Chronic kidney disease 09/12/2021 Family History Relation Status Comments Father Mother Social History Tobacco Use Types Packs/Day Years Used Date Smoking Tobacco: Never Smokeless Tobacco: Never Tobacco Cessation:Counseling Given: Not Answered Alcohol Use Standard Drinks/Week Comments Never 0 (1 standard drink = 0.6 oz pur e alcohol) Sex and Gender Information Value Date Recorded Sex Assigned at Not on file Legal Sex Male 10:00 AM EST Gender Identity Not on file Sexual Orientation Not on file Last Filed Vital Signs Vital Sign Reading Time Taken Comments Blood Pressure 140/82 10/29/2022 4:16 PM EDT Pulse 75 10/29/2022 4:16 PM EDT Temperature - - Respiratory Rate - - Oxygen Saturation - - Inhaled Oxygen Concentration - - Weight 62.1 kg (136 lb 12.8 oz) 10/29/2022 4:16 PM EDT Height - - Body Mass Index - - Plan of Treatment Health Maintenance Due Date Last Done Comments Pneumococcal Vaccine: 65+ Ye ars (1 of 2 - PCV) 1941 Influenza Vaccine (Season Ended) 2025 Hepatitis B Vaccine Aged Out No longe r eligible based on patient's age to complete this topic Insurance MEDICARE MEDICARE Care Teams Cloth Desizing Range Tender Relationship Specialty Start Date End Date Horacio Shelton MD PCP - General Internal Medicine 04/12/23
--- OUTSIDE RECORDS SUMMARY | 2024-09-14 15:14 | XMS_ITS | Continuity of Care Document ---
Author Organization [facility] Address [address] [place] [address] Phone [phone] Care Team Providers Care Manager Unit Name Role Phone Jerome Grewal M.D. Care Team Information Recei dinora [phone] Problems Active Problems Provider Date Celiac disease [...] Medications SIG Qnty Indications Ordering Provider Date Amlodipine [id number] Tablets 1 by mouth every day 90tabs González Barone M.D. 02/02/2023 Vitamin D (Ergocalciferol)69154W nit Capsules take one weekly 4caps Octavia Young M.D. 10/09/2022 [facility] Vitamin [id number] Tablets 1 by mouth every day González Barone M.D. 08/05/2022 Iron (Ferrous Sulfate)325(65Fe) mg Tablets 1 by mouth every day González Barone M.D. 08/05/2022 [id number] Capsules Take 1 Capsule By Mouth Three Times Daily Unknown Levothyroxine [id number] Tablets Take 1 Tablet By Mouth Every Day Jerome Grewal M.D. Folic Sfgk7mt Tablets Take 1 daily Jerome Moreira M.D. History Medications Vitamin D (Ergocalciferol)1.25mg (56402 Ut) Capsules Take 1 Capsule By Mouth Weekly sowmya Barone M.D. 09/22/2023 - 09/07/2024 Vital Signs Date Vital Result Comment 09/07/2024 2:40pm BP Systolic 124 mmHg BP Diastolic 64 mmHg Heart Rate 67 /min Height 66 inches 5'6 Weight 130.12 lb BMI (Body Mass Index) 21.0 kg/m2 Results Test Acquired Date Facility Test Result H/L Range Note TSH Rfx on Abnormal to Free T4 09/07/2024 [facility] TSH Rfx on Abnormal to Free T4 1.830 uIU/mL 0.450-4. 500 Calcium 09/07/2024 [facility] Calcium 8.5 mg/dL Low 8.6-10.2 Phosphorus 09/07/2024 [facility] Phosphorus 2.6 mg/dL Low 2.8-4.1 Vitamin D, 25-Hydroxy 09/07/2024 [facility] Vitamin D, 25-Hydroxy 24.0 ng/mL Low 30.0-100 .0 1 Albumin 09/07/2024 [facility] Albumin 3.9 g/dL 3.7-4.7 Alkaline Phosphatase 09/07/2024 [facility] Alkaline Phosphatase 51 IU/L 44-121 PTH, Intact 09/07/2024 [facility] PTH, Intact 114 pg/mL High 15-65 TSH With Reflex To FT4 02/02/2023 [facility] TSH With Reflex To FT4 3.77 uIU/mL (0.4-4.2 ) Calcium 02/02/2023 [facility] Calcium 9.3 mg/dL (8.6-10. 5) Albumin 02/02/2023 [facility] Albumin 4.7 GM/DL (3.4-4.8 ) 25Oh Vitamin D 02/02/2023 [facility] 25Oh Vitamin D 29.1 NG/ML (20-50) TSH With Reflex To FT4 10/08/2022 [facility] TSH With Reflex To FT4 4.01 uIU/mL (0.4-4.2 ) 25Oh Vitamin D 10/08/2022 [facility] 25Oh Vitamin D 28.5 NG/ML (20-50) Free T4 10/08/2022 [facility] Free T4 1.47 ng/dL (0.70-1. 80) 25Oh Vitamin D 10/08/2022 [facility] 25Oh Vitamin D Duplicate order <SEE NOTE> 2 1 Vitamin D deficiency has been defined by the [place] of [employer] and an Endocrine Society practice guideline as a level of serum 25-OH vitamin D less than 20 ng/mL (1,2). The Endocrine Society went on to further define vitamin D insufficiency as a level between 21 and 29 ng/mL (2). 1. IOM ([place] of Medicine). 2010. Dietary reference intakes for calcium and D. [place]: The National Academies Press. 2. Nimo MF, Vinicio CONCEPCION, Marifer BLUM, et al. Evaluation, treatment, and prevention of vitamin D deficiency: an Endocrine Society clinical practice guideline. JCEM. 2010; 96(7):1911-30. 2 Duplicate order canc elled via interface Medical [...]
== END 2024-09-14 14:55 | disposition home or self-care (01) ==
LOC: HO.HKAS 13:50
PROVIDERS: PCP Internal Medicine; Visit Provider Internal Medicine Nephrology
DX: N18.31 Chronic kidney disease, stage 3a (principal); I10 Essential (primary) hypertension
CPT/HCPCS: 99214

== ENCOUNTER 2024-09-14 13:49 | Outpatient (REF) | payer MEDICARE, SELFPAY ==
--- OUTSIDE RECORDS SUMMARY | 2024-09-14 16:03 | XMS_ITS | Continuity of Care Document ---
Author Organization [facility] Address [address] [place] [address] Phone [phone] Care Team Providers Care Director Systems Name Role Phone Jerome Grewal M.D. Care Team Information Recei dinora [phone] Problems Active Problems Provider Date Celiac disease [...] SIG Qnty Indications Ordering Provider Date Amlodipine Zbmwtvmz5vt Tablets 1 by mouth every day 90tabs González Barone M.D. 02/02/2023 Vitamin D (Ergocalciferol)11311E nit Capsules take one weekly 4caps Octavia Young M.D. 10/09/2022 [facility] Vitamin [id number] Tablets 1 by mouth every day González Barone M.D. 08/05/2022 Iron (Ferrous Sulfate)325(65Fe) mg Tablets 1 by mouth every day González Barone M.D. 08/05/2022 Glpaviyjhlh541ek Capsules Take 1 Capsule By Mouth Three Times Daily Unknown Levothyroxine Snekyu807nvj Tablets Take 1 Tablet By Mouth Every Day Jerome Grewal M.D. Folic Nodq4kc Tablets Take 1 daily Jerome Moreira M.D. History Medications Vitamin D (Ergocalciferol)1.25mg (56260 Ut) Capsules Take 1 Capsule By Mouth [...] 15-65 TSH With Reflex To FT4 02/02/2023 [facility] TSH With Reflex To FT4 3.77 uIU/mL (0.4-4.2 ) Calcium 02/02/2023 [facility] Calcium 9.3 mg/dL (8.6-10. 5) Albumin 02/02/2023 [facility] Albumin 4.7 GM/DL (3.4-4.8 ) 25Oh Vitamin D 02/02/2023 [facility] 25Oh Vitamin D 29.1 NG/ML (20-50) TSH With Reflex To FT4 10/08/2022 [facility] TSH With Reflex To FT4 4.01 uIU/mL (0.4-4.2 ) 25Oh Vitamin D 10/08/2022 [facility] 25Oh Vitamin D 28.5 NG/ML (20-50) Free T4 10/08/2022 [facility] Free T4 1.47 ng/dL (0.70-1. 80) 25Oh Vitamin D 10/08/2022 [facility] 25Oh Vitamin D Duplicate order <SEE NOTE> 2 1 Vitamin D deficiency has been defined by the [place] of [employer] and an Endocrine Society practice guideline as a level of serum 25-OH vitamin D less than 20 ng/mL (1,2). The Endocrine Society went on to further define vitamin D insufficiency as a level between 21 and 29 ng/mL (2). 1. IOM ([place] of [employer]). 2010. Dietary reference intakes for [...]
--- OUTSIDE RECORDS SUMMARY | 2024-09-14 16:03 | XMS_ITS | Clinical Summary ---
Author Organization [facility] Address [address] [address] Phone Care Team Providers Care Instrument Engineer Name Role Phone Horacio Shelton MD Primary Care Provide r Allergies No known active allergies Medications folic acid (FOLVITE) 1 MG tablet Take 1,000 mcg by mouth 1 (one) time each day 09/01/2021 Active levothyroxine (SYNTHROID, LEVOTHROID) 175 MCG tablet Take 175 mcg by mouth 1 (one) time each day 10/08/2022 Active ergocalciferol 1.25 MG (99639 UT) capsule Take 50,000 Units by mouth [...] this topic Insurance MEDICARE MEDICARE Care Teams Instrument Engineer Relationship Specialty Start Date End Date Horacio Shelton MD PCP - General Internal Medicine 04/12/23
[2024-09-14 17:41] LABS: MANUAL DIFF FLAG NO
[2024-09-14 17:51] LABS: Appearance Urine Turbid; Color Urine Dark Yellow; Glucose Urine UA Negative (Negative); Leukocyte Esterase Urine Moderate (2+) (Negative); Nitrite Urine Negative (Negative); PH 5.5 (5.0-9.0); Specific Gravity - Urine >= 1.030 (1.005-1.025); UMIC TRIGGER UA YES; Urine Blood Negative (Negative); Urine Ketones Trace mg/dL (Negative); Urine Protein 30 (1+) mg/dL (Neg-Trace)
[2024-09-14 18:14] LABS: Anion Gap 10 (12-20); Blood Urea Nitrogen 32 mg/dL (9-16); Calcium 8.5 mg/dL (8.4-10.2); Carbon Dioxide 24 mmol/L (22-29); Chloride 112 mmol/L (96-108); Estimated Glomerular Filt Rate > 60; Phosphorus 2.8 mg/dL (2.7-4.5); Potassium 4.9 mmol/L (3.3-5.1); Sodium 141 mmol/L (135-145)
[2024-09-14 18:15] LABS: Bacteria Urine 1+ (None Seen); Hyaline Casts Urine 0-2 /LPF (0-2); WBC Clumps Urine Present
[2024-09-14 18:15] LABS: Basophils Percent Auto 0.9 % (0-2); Eosinophils Absolute Auto 0.1 X10*3/uL (0.0-0.4); Eosinophils Percent Auto 2.1 % (0-4); Hematocrit 37.9 % (42.0-52.0); Hemoglobin 12.5 g/dl (14.0-18.0); Imm Gran Abs Auto 0.01 X10*3/uL (0.00-0.03); Imm Gran Pct Auto 0.2 % (0.0-0.4); Lymphocytes Absolute Auto 0.7 X10*3/uL (1.2-4.9); Lymphocytes Percent Auto 17.2 % (20-40); Mean Corpuscular Hemoglobin 31.2 pg (27.0-33.0); Mean Corpuscular Volume 94.5 fL (80.0-98.0); Mean Platelet Volume 10.6 fL (9.4-12.4); Monocytes Absolute Auto 0.4 X10*3/uL (0.1-1.2); Monocytes Percent Auto 8.9 % (2-11); Neutrophils Percent Auto 70.7 % (45-73); Platelet Count 224 X10*3/uL (160-400); Red Blood Count 4.01 X10*6/uL (4.60-5.80); Red Cell Distribution Width 14.3 % (11.0-16.0); White Blood Count 4.3 X10*3/uL (4.8-10.8)
[2024-09-14 18:17] LABS: Parathyroid Hormone Intact 232.5 pg/mL (8.7-77.1)
[2024-09-14 18:19] LABS: Vitamin D 25-OH Total 24.7 ng/mL (>30)
== END 2024-09-14 13:50 | disposition home or self-care (01) ==
LOC: HO.HKASLDS 13:49
PROVIDERS: PCP Internal Medicine; Visit Provider Internal Medicine Nephrology
DX: I12.9 Hypertensive chronic kidney disease with stage 1 through stage 4 chronic kidney disease, or unspecified chronic kidney disease (principal); N18.31 Chronic kidney disease, stage 3a; N40.0 Benign prostatic hyperplasia without lower urinary tract symptoms
CPT/HCPCS: 36415; 80051; 81001; 82306; 82310; 82565; 83970; 84100; 84520; 85025; 99212

== ENCOUNTER 2025-02-08 09:54 | Outpatient (AMB) | payer MEDICARE, SELFPAY ==
--- NOTE | 2025-02-08 09:59 | HO.NEPHOV ---
Vital Signs 02/08/25 10:06 Height 5 ft 6 in Weight 132 lb 4 oz BMI 21.3 BP 132/60 Blood Pressure Location Lt brachial Position Sitting Pulse 83 Pulse Source Pulse Oximeter Pulse Oximetry (%) 98 Oxygen Delivery Method Room Air Intake Visit Reasons: 6mon loqdkz-ae-Xmhf w/daughter Allergies house dust Allergy (Verified 09/14/24 14:02) Unknown mold Allergy (Verified 09/14/24 14:02) Unknown HPI Comments Details: Grayson was seen in follow-up of his chronic kidney disease. He feels well. He is not a diabetic. He has been having prostatic issues which has improved after increase in Flomax. He denies hematuria, edema. His blood pressure has been well controlled. He avoids nonsteroidal inflammatory medications, maintain good hydration and take low-sodium diet. His serum creatinine had been stable. He has been having burning while micturition without fever, chills, hematuria, nausea or flank pain. ON LICENSE OF [facility] Medical History Benign prostatic hyperplasia Chronic kidney disease, stage 3a Surgical History History of appendectomy Social History Alcohol intake: never Patient Tobacco Use Status: Never used Tobacco Review of Systems Const All systems reviewed & are unremarkable except as noted in HPI and below Physical Exam Const General: comfortable and no acute distress Orientation/consciousness: patient oriented x3 HEENT Head: Yes normocephalic Mouth: Normal oral and palatal mucosa present Eyes EOM: EOMs intact bilaterally Neck Neck: Yes supple Resp Auscultation: clear to auscultation bilaterally Cardio Jugular venous distension: no JVD Rate: regular rate GI Palpation (GI): Soft to palpation Auscultation: normal bowel sounds General: Yes no CVA tenderness Back/Spine/Pelvis Back: no CVA tenderness Skin General skin exam: no rashes or lesions noted Neuro General: patient oriented x3 and moves all extremities Extrem General: Yes no pedal edema Assessment & Plan Assessment & Plan (1) Hypertension: Code(s): I10 - Essential (primary) hypertension Category: Medical Qualifiers: Hypertension type: primary hypertension Qualified Code(s): I10 - Essential (primary) hypertension (2) Chronic kidney disease, stage 3a: Code(s): N18.31 - Chronic kidney disease, stage 3a Category: Medical (3) Dysuria: Code(s): R30.0 - Dysuria Category: Medical Plan Grayson has 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 His serum creatinine had been stable. His ultrasound was normal. His CKD workup had been negative so far. He is on terazosin . He avoids nonsteroidal anti-inflammatories. I ordered urine culture and gave him levaquin . I did not make any other medication changes today. Answered all questions. Follow-up lab work ordered. Follow-up appointment given. Orders: Orders Blood Urea Nitrogen Today I10 - Essential (primary) hypertension, N18.31 - Chronic kidney disease, stage 3a, R30.0 - Dysuria Creatinine Today I10 - Essential (primary) hypertension, N18.31 - Chronic kidney disease, stage 3a, R30.0 - Dysuria Electrolytes 6 Months I10 - Essential (primary) hypertension, N18.31 - Chronic kidney disease, stage 3a Blood Urea Nitrogen 6 Months I10 - Essential (primary) hypertension, N18.31 - Chronic kidney disease, stage 3a Complete Blood Count Auto Diff Today I10 - Essential (primary) hypertension, N18.31 - Chronic kidney disease, stage 3a, R30.0 - Dysuria Electrolytes Today I10 - Essential (primary) hypertension, N18.31 - Chronic kidney disease, stage 3a, R30.0 - Dysuria Urine Culture Today R30.0 - Dysuria Creatinine 6 Months I10 - Essential (primary) hypertension, N18.31 - Chronic kidney disease, stage 3a Medications: New levofloxacin 250 mg PO DAILY 10 tabs 0RF Coding Level of Care Code Est Pt Level 4 (63988) Diagnoses Primary hypertension I10 Hypertension type: primary hypertension Chronic kidney disease, stage 3a N18.31 Dysuria R30.0
[2025-02-08 10:06] VITALS: BP 132/60; PULSE 83; O2SAT 98; BMI 21.3
--- OUTSIDE RECORDS SUMMARY | 2025-02-08 11:00 | XMS_ITS | Continuity of Care Document ---
Author Organization [facility] Address [address] [place] [address] Phone [phone] Care Team Providers Care Pipe Fitter Welding Name Role Phone Jerome Grewal M.D. Care Team Information Recei dinora [phone] Problems Active Problems Provider Date Celiac disease González Barone M.D. Onset: Secondary hyperparathyroidism Piper Zamorano Onset: 08/05/2022 Hypothyroidism González Barone M.D. Onset: Essential hypertension González Barone M.D. Ons et: 08/05/2023 Social History Type Date Description Comments Sex Male Sex Unknown Lives With Spouse ETOH Use Denies alcohol use Tobacco Use Start: Unknown Patient has never smoked Allergies and adverse reactions Description No Known Drug Allergies Medications Active Medications SIG Qnty Indications Ordering Provider Date Amlodipine [id number] Tablets 1 by mouth every day 90tabs González Barone M.D. 02/02/2023 Vitamin D (Ergocalciferol)93100L nit Capsules take one weekly 12caps Octavia Young M.D. 10/09/2022 [facility] Vitamin [id number] Tablets 1 by mouth every day González Barone M.D. 08/05/2022 Iron (Ferrous Sulfate)325(65Fe) mg Tablets 1 by mouth every day González Barone M.D. 08/05/2022 [id number] Capsules Take 1 Capsule By Mouth Three Times Daily Unknown Levothyroxine [id number] Tablets Take 1 Tablet By Mouth Every Day Jerome Grewal M.D. Folic Kwve6rj Tablets Take 1 daily M urray, Jerome, M.D. Vital Signs Date Vital Result Comment 09/07/2024 [...] 15-65 TSH With Reflex To FT4 02/02/2023 [facility] TSH With Reflex To FT4 3.77 uIU/mL (0.4-4.2 ) Calcium 02/02/2023 [facility] Calcium 9.3 mg/dL (8.6-10. 5) Albumin 02/02/2023 [facility] Albumin 4.7 GM/DL (3.4-4.8 ) 25Oh Vitamin D 02/02/2023 [facility] 25Oh Vitamin D 29.1 NG/ML (20-50) TSH With Reflex To FT4 10/08/2022 [facility] TSH With Reflex To FT4 4.01 uIU/mL (0.4-4.2 ) 25Oh Vitamin D 10/08/2022 [facility] 25Oh Vitamin D 28.5 NG/ML (20-50) Free T4 10/08/2022 [facility] Free T4 1.47 ng/dL (0.70-1. 80) 25Oh Vitamin D 10/08/2022 [facility] 25Oh Vitamin D Duplicate order <SEE NOTE> 2 1 Vitamin D deficiency has been defined by the [place] of [employer] and an Endocrine Society practice guideline as a level of serum 25-OH vitamin D less than 20 ng/mL (1,2). The Endocrine Society went on to further define vitamin D insufficiency as a level between 21 and 29 ng/mL (2). 1. IOM ([place] of [employer]). 2010. Dietary reference intakes for [...] Date Location Provider Dx Diagnosis Office Visit 09/07/2024 2:30p Main Office SUNSHINE Chapa E03.9 Hypothyroidis m, unspecified E21.1 Secondary hyperparat hyroidism, not elsewhere classified E55.9 Vitamin D deficiency , unspecified Assessments Date Code Description Provider 09/07/2024 E03.9 Hypothyroidism SUNSHINE Romano 09/07/2024 E21.1 Secondary hyperp arathyroidism, not elsewhere classified [facility]SH[facility] Chapa 09/07/2024 E55.9 Vitamin D deficiency SUNSHINE Chapa Plan of Treatment No Information Available Functional Status Description No Information Available Mental Status Description No Information Available Referrals Description No Information Available
--- OUTSIDE RECORDS SUMMARY | 2025-02-08 11:00 | XMS_ITS | Encounter Summary ---
Author Organization [facility] Address [address] [place] [address] Care Team Providers Care Vegetable Loader Name Role Phone Unavailable Primary Care Provider Unavailabl e Encounter Details Date Type Department Care Team (Late Contact Info) Description 02/01/2025 Results Follow-Up [address] [id number] Bridger Moreno NP [address] [place] [address] Social History Tobacco Use Types Packs/Day Years Used Date Smoking Tobacco: Never Passive Smoke Exposure: Never Smokeless Tobacco: Never Alcohol Use Standard Drinks/Week Comments Not Currently 0 (1 standard drink = 0.6 oz pur e alcohol) Sex and Gender Information Value Date Recorded Sex Assigned at Male 01/15/2025 8:09 AM PDT Legal Sex Male 8:07 AM PDT Gender Identity Male 01/15/2025 8:09 AM PDT Sexual Orientation Straight 01/15/2025 8: 09 AM PDT documented as of this encounter Plan of Treatment Upcoming Encounters Date Type Department Care Team (Late st Contact Info) Description 02/26/2025 1:40 PM EDT Office Visit [facility] [address] [place] [address] Jane Dominguez FNP [address] [place] [address] documented as of this encounter Visit Diagnoses Not on filedocumented in this encounter Additional Health Concerns Assessment Noted Time PHQ-9 Depression Total Score: 0 01/30/20 25 2:48 PM PDT A Depression follow-up plan has been documented for the patient 01/29/2025 6:08 PM PDT documented as of this encounter
--- OUTSIDE RECORDS SUMMARY | 2025-02-08 11:00 | XMS_ITS | Clinical Summary ---
Author Organization [facility] Address [address] [place] [address] Care Team Providers Care Poker Dealer Name Role Phone Unavailable Primary Care Provider Unavailabl e Source Comments PLEASE NOTE, if this patient is a minor, it may be UNLAWFUL to discuss sensitive information that is contained in these records (such as FAMILY PLANNING, MENTAL HEALTH or SUBSTANCE ABUSE) with the minor patient's parent or other person without the patient's specific authorization.[facility] Allergies Active Allergy Reactions Criticality Noted Date Comments Dust Mites Itching 01/29/2025 House Dust Nasal Congestion 01/29/2025 Medications albuterol HFA 90 mcg/actuation inhaler 2 Puffs every 6 (six) hours as needed for shortness of breath. 5 Active levothyroxine 175 mcg tablet Take 175 mcg by mouth once daily. 3 Active ergocalciferol (VITAMIN D-2) 1,250 mcg (50,000 unit) capsule Take 50,000 Units by mouth once a week. 3 Active folic acid (FOLVITE) 1 mg tablet Take 1 mg by mouth once daily. Active cyanocobalamin (VITAMIN B-12) 1,000 mcg tablet Take 1,000 mcg by mouth once daily. 3 Active ferrous sulfate 325 mg (65 mg iron) tablet Take 325 mg by mouth once daily with breakfast. 3 Active terazosin (HYTRIN) 5 mg capsule Take 5 mg by mouth nightly at bedtime. 5 Active Active Problems Problem Noted Date Diagnosed Date Other specified nutritional anemias 02/01/2025 Benign prostatic hyperplasia 01/29/2025 Hypothyroidism 01/29/2025 Murmur, cardiac 01/29/2025 Chronic kidney disease 01/29/2025 Encounters Date Type Department Care Team Description 02/01/2025 Results Follow-Up [address] [phone] Bridger Moreno NP 01/29/2025 3:20 PM EDT Office Visit [address] [address] Bridger Moreno NP from Last 3 Months Family History Relation Name Status Comments Daughter 1 Alive Daughter 2 Alive Father Mother Social History Tobacco Use Types [...] Orientation Straight 01/15/2025 8: 09 AM PDT Last Filed Vital Signs Vital Sign Reading Time Taken Comments Blood Pressure 130/70 01/29/2025 2:48 PM EDT Pulse 86 01/29/2025 2:48 PM EDT Temperature 36.6 C (97.8 F) 01/29/2025 2:48 PM EDT Respiratory Rate 16 01/29/2025 2:48 PM EDT Oxygen Saturation 97% 01/29/2025 2:48 PM EDT Inhaled Oxygen Concentration - - Weight 59.9 kg (132 lb) 01/29/2025 2:48 PM EDT Height 165.2 cm (5' 5.04 ) 01/29/2025 2:48 PM ED T Body Mass Index 21.94 01/29/2025 2:48 PM EDT Plan of Treatment Upcoming Encounters Date Type Department Care Team (Late st Contact Info) Description 02/26/2025 1:40 PM EDT Office Visit [address] [phone] Jane Dominguez FNP [address] [place] [phone] Health Maintenance Due Date Last Done Comments Advanced Care Planning 1935 Imm-DTaP/Tdap/Td (1 - Tdap) 08[birth year]27/1954 Imm-Pneumococcal 50+ (1 of 1 - PCV) 1986 Imm-Zoster, Recombinant (1 of 2) 1986 Imm-RSV (adult) (1 - 1-dose 75+ series) 08/27/2011 [id number] (1 - 2023-25 season) 2024 Imm-Influenza (#1) 2025 Tobacco Screening 01/22/2026 01/22/2025 Falls Prevention 01/29/2026 01/29/2025 Hypertension Screening (#1) 01/29/2026 TSH Monitoring 01/29/2026 01/29/2025 Alcohol and Drug Screen Completed 01/29/2025 Depression Annual Screen Completed 01/29/2025 Procedures Procedure Name Priority Date/Time Associated Diagnosis Comments 25 HYDROXY INCLUDES FRACTIONS IF PERFORMED Routine 01/29/2025 12:00 AM EDT Vitamin D deficiency VITAMIN B12 & FOLATE Routine 01/29/2025 12:00 AM EDT Vitamin B12 deficiency IRON, TIBC, FERRITIN PANEL Routine 01/29/2025 12:00 AM EDT Anemia, unspecified type TSH W/RFLX FREE T4 Routine 01/29/2025 12 :00 AM EDT Screening for heart disease LIPID PANEL Routine 01/29/2025 12:00 AM EDT Screening for heart disease HEMOGLOBIN GLYCOSYLATED A1C Routine 01/29/2025 12:00 AM EDT Diabetes mellitus screening COMPREHENSIVE METABOLIC PANEL Routine 01/29/2025 12:00 AM EDT Screening for heart disease BLOOD COUNT COMPLETE AUTO&AUTO DIFRNTL WBC Routine 01/29/2025 12:00 AM EDT Screening for heart disease from Last 3 Months Results * IRON, TIBC, FERRITIN PANEL Routine (01/29/2025 12:00 AM EDT) Pathologist [facility] IRON, TOTAL 72 50 - 180 mcg/dL 01/30/2025 6:16 AM EDT [facility] IRON BINDING CAPACITY 296 250 - 425 mcg/dL (calc) 01/30/2025 6:16 AM EDT [facility] % SATURATION 24 20 - 48 % (calc) 01/30/2025 6:16 AM EDT [facility] FERRITIN 57 24 - 380 ng/mL 01/30/2025 6:49 AM EDT [facility] Blood Blood / Unknown 01/29/2025 1 2:00 AM EDT 01/30/2025 4:36 AM EDT [employer] [facility] - 01/30/2025 6:51 AM EDT FASTING:NO Bridger Moreno PALM GATHERER LAB - BLOOD DRAW Final Result Performing Organization Address [facility] Co de Phone Number [email or web address] [address] [address], [place] [employer] [address] [address] * TSH W/RFLX FREE T4 Routine (01/29/2025 12:00 AM EDT) [facility] TSH W/REFLEX TO FT4 3.70 0.40 - 4.50 mIU/L 01/30/2025 6:49 AM EDT [facility] Blood Blood / Unknown 01/29/2025 1 2:00 AM EDT 01/30/2025 4:36 AM EDT [employer] [facility] - 01/30/2025 6:51 AM EDT FASTING:NO [facility] PALM GATHERER LAB - BLOOD DRAW Final Result Performing Organization Address [facility] Co de Phone Number [email or web address] [address] [address], [place] [employer] [address] [address] * VITAMIN B12 & FOLATE Routine (01/29/2025 12:00 AM EDT) [facility] VITAMIN B12 432 200 - 1,100 pg/mL 01/30/2025 8:22 AM EDT [facility] FOLATE, SERUM 23.1 ng/mL 01/30/2025 8:22 AM EDT [facility] Blood Blood / Unknown 01/29/2025 1 2:00 AM EDT 01/30/2025 4:36 AM EDT Narrative [employer] [facility] - 01/30/2025 8:24 AM EDT FASTING:NO Reference Range Low: <3.4 Borderline: 3.4-5.4 Normal: >5.4 . Bridger Moreno NP LAB - BLOOD DRAW Final Result [employer] [address] [address], [facility] [address] [address] * (ABNORMAL) BLOOD COUNT COMPLETE AUTO&AUTO DIFRNTL WBC Routine (01/29/2025 12:00 AM EDT) WHITE BLOOD CELL COUNT 3.7(L) 3.8 - 10.8 Thousand/ uL 01/30/2025 3:45 AM EDT [facility] RED BLOOD CELL COUNT 4.06(L) 4.20 - 5.80 Million/u L 01/30/2025 3:45 AM EDT [facility] HEMOGLOBIN 12.7(L) 13.2 - 17.1 g/dL 01/30/2025 3:45 AM [employer]Blottr [facility] HEMATOCRIT 39.6 38.5 - 50.0 % 01/30/2025 3:45 AM EDT [facility] MCV 97.5 80.0 - 100.0 fL 01/30/2025 3:45 AM EDT [facility] MCH 31.3 27.0 - 33.0 pg 01/30/2025 3:45 AM EDT [facility] MCHC 32.1 32.0 - 36.0 g/dL 01/30/2025 3:45 AM EDT [facility] RDW 13.1 11.0 - 15.0 % 01/30/2025 3:45 AM [employer]Blottr [facility] PLATELET COUNT 249 140 - 400 Thousand/ uL 01/30/2025 3:45 AM EDT [employer] MPV 10.2 7.5 - 12.5 fL 01/30/2025 3:45 AM EDT [facility] ABSOLUTE NEUTROPHILS 2,172 1,500 - 7,800 cells/uL 01/30/2025 3:45 AM EDT [facility] ABSOLUTE LYMPHOCYTES 1,029 850 - 3,900 cells/uL 01/30/2025 3:45 AM EDT [facility] ABSOLUTE MONOCYTES 370 200 - 950 cells/uL 01/30/2025 3:45 AM EDT [facility] ABSOLUTE EOSINOPHILS 100 15 - 500 cells/uL 01/30/2025 3:45 AM EDT [facility] ABSOLUTE BASOPHILS 30 0 - 200 cells/uL 01/30/2025 3:45 AM EDT [facility] NEUTROPHILS PCT 58.7 % 3:45 AM EDT [facility] LYMPHOCYTES 27.8 % 01/30/2025 3:45 AM EDT [facility] MONOCYTES 10.0 % 01/30/2025 3:45 AM EDT [facility] EOSINOPHILS 2.7 % 01/30/2025 3:45 AM EDT [facility] BASOPHILS 0.8 % 01/30/2025 3:45 AM EDT [employer] Blood Blood / Unknown 01/29/2025 1 2:00 AM EDT 01/30/2025 2:33 AM EDT Narrative [employer] [facility] - 01/30/2025 4:04 AM EDT FASTING:NO For adults, a slight decrease in the calculated MCHC value (in the range of 30 to 32 g/dL) is most likely not clinically significant; however, it should be interpreted with caution in correlation with other red cell parameters and the patient's clinical condition. us Bridger Moreno NP LAB - BLOOD DRAW Final Result [facility] Service Seeking [address] [place] [phone], [facility] [address] [address] * HEMOGLOBIN GLYCOSYLATED A1C Routine (01/29/2025 12:00 AM EDT) HEMOGLOBIN A1C 5.3 <5.7 % 01/30/2025 3:41 AM EDT [facility] Blood Blood / Unknown 01/29/2025 1 2:00 AM EDT 01/30/2025 2:33 AM EDT Narrative [facility] - 01/30/2025 4:04 AM EDT FASTING:NO For the purpose of screening for the presence of diabetes: . <5.7% Consistent with the absence of diabetes 5.7-6.4% Consistent with increased risk for diabetes (prediabetes) > or =6.5% Consistent with diabetes . This assay result is consistent with a decreased risk of diabetes. . Currently, no consensus exists regarding use of hemoglobin A1c for diagnosis of diabetes in children. . According to [place] Diabetes Association (ADA) guidelines, hemoglobin A1c <7.0% represents optimal control in non- diabetic patients. Different metrics may apply to specific patient populations. Standards of Medical Care in Diabetes(ADA). . Bridger Moreno NP LAB - BLOOD DRAW Final Result [facility] [address] [place] [address], [facility] [address] [place] [phone] * (ABNORMAL) 25 HYDROXY INCLUDES FRACTIONS IF PERFORMED Routine (01/29/2025 12:00 AM EDT) [facility] VITAMIN D, 25-OH, TOTAL 28(L) 30 - 100 ng/mL 01/30/2025 6:49 AM EDT [facility] Blood Blood / Unknown 01/29/2025 1 2:00 AM EDT 01/30/2025 4:36 AM EDT [facility] - 01/30/2025 6:51 AM EDT FASTING:NO Vitamin D Status 25-OH Vitamin D: . Deficiency: <20 ng/mL Insufficiency: 20 - 29 ng/mL Optimal: > or = 30 ng/mL . For 25-OH Vitamin D testing on patients on D2-supplementation and patients for whom quantitation of D2 and D3 fractions is required, the [facility] 25-OH VIT D, (D2,D3), LC/MS/MS is recommended: order code 49626 (patients >2yrs). . See Note 1 . Note 1 . For additional information, please refer to http://education.Biopharmacopae/faq/TEU787 (This link is being provided for informational/ educational purposes only.) Bridger Moreno PALM GATHERER LAB - BLOOD DRAW Final Result [facility] [address] [address], [facility] [address] [address] * (ABNORMAL) LIPID PANEL Routine (01/29/2025 12:00 AM EDT) CHOLESTEROL, TOTAL 167 <200 mg/dL 01/30/2025 6:16 AM EDT [facility] HDL CHOLESTEROL 33(L) > OR = 40 mg/dL 01/30/2025 6:16 AM EDT [facility] TRIGLYCERIDES 84 <150 mg/dL 01/30/2025 6:16 AM EDT [facility] LDL-CHOLESTEROL 116(H) mg/dL (calc) 01/30/2025 6:16 AM EDT [facility] CHOL/HDLC RATIO 5.1(H) <5.0 (calc) 01/30/2025 6:16 AM EDT [facility] NON-HDL CHOLESTEROL 134(H) <130 mg/dL (calc) 01/30/2025 6:16 AM Espress[employer] [facility] Blood Blood / Unknown 01/29/2025 1 2:00 AM EDT 01/30/2025 4:36 AM EDT Narrative [employer] [facility] - 01/30/2025 6:51 AM EDT FASTING:NO Reference range: <100 . Desirable range <100 mg/dL for primary prevention; <70 mg/dL for patients with CHD or diabetic patients with > or = 2 CHD risk factors. . LDL-C is now calculated using the Sal calculation, which is a validated novel method providing better accuracy than the Friedewald equation in the estimation of LDL-C. Omar BLANK et al. BERNARD. 2013;310(19): 0015-5547 (http://education.VoIP Supply.Bitcast/faq/FTB228) For patients with diabetes plus 1 major ASCVD risk factor, treating to a non-HDL-C goal of <100 mg/dL (LDL-C of <70 mg/dL) is considered a therapeutic option. Gerharddanilo Moreno ANILA LAB - BLOOD DRAW Final Result [facility] [address] [address], [facility] [address] [place] [address] * (ABNORMAL) COMPREHENSIVE METABOLIC PANEL Routine (01/29/2025 12:00 AM EDT) [facility] GLUCOSE 94 65 - 139 mg/dL 01/30/2025 6:16 AM [employer] [facility] UREA NITROGEN (BUN) 21 7 - 25 mg/dL 01/30/2025 6:16 AM [employer] [facility] CREATININE (blood) 1.32(H) 0.70 - 1.22 mg/dL 01/30/2025 6:16 AM [employer]Blottr [facility] EGFR 52(L) > OR = 60 mL/min/1. 73m2 01/30/2025 6:16 AM [employer] [facility] BUN/CREATININE RATIO 16 6 - 22 (calc) 01/30/2025 6:16 AM [employer] [facility] SODIUM 141 135 - 146 mmol/L 01/30/2025 6:16 AM [employer] [facility] POTASSIUM 4.3 3.5 - 5.3 mmol/L 01/30/2025 6:16 AM [employer] [facility] CHLORIDE 108 98 - 110 mmol/L 01/30/2025 6:16 AM [employer] [facility] CARBON DIOXIDE 26 20 - 32 mmol/L 01/30/2025 6:16 AM [employer] [facility] CALCIUM 8.7 8.6 - 10.3 mg/dL 01/30/2025 6:16 AM [employer] [facility] PROTEIN, TOTAL 6.2 6.1 - 8.1 g/dL 01/30/2025 6:16 AM [employer] [facility] ALBUMIN 4.2 3.6 - 5.1 g/dL 01/30/2025 6:16 AM EDT [facility] GLOBULIN 2.0 1.9 - 3.7 g/dL (calc) 01/30/2025 6:16 AM EDT [facility] ALBUMIN/GLOBULI N RATIO 2.1 1.0 - 2.5 (calc) 01/30/2025 6:16 AM EDT [facility] BILIRUBIN, TOTAL 0.5 0.2 - 1.2 mg/dL 01/30/2025 6:16 AM EDT [facility] ALKALINE PHOSPHATASE 48 35 - 144 U/L 01/30/2025 6:16 AM EDT [facility] AST 16 10 - 35 U/L 01/30/2025 6:16 AM EDT [facility] ALT 15 9 - 46 U/L 01/30/2025 6:16 AM EDT [facility] Blood Blood / Unknown 01/29/2025 1 2:00 AM EDT 01/30/2025 4:36 AM EDT Narrative [employer] [facility] - 01/30/2025 6:51 AM EDT FASTING:NO . Non-fasting reference interval . Bridger Moreno NP LAB - BLOOD DRAW Final Result [facility] Service Seeking [address] [place] [address], [facility] [address] [address] from Last 3 Months Insurance [facility]
--- OUTSIDE RECORDS SUMMARY | 2025-02-08 11:00 | XMS_ITS | Clinical Summary ---
Author Organization [facility] Address [address] [address] Phone Care Team Providers Care Assisted Living Manager Name Role Phone Horacio Shelton MD Primary Care Provide r Allergies No known active allergies Medications folic acid (FOLVITE) 1 MG tablet Take 1,000 mcg by mouth 1 (one) time each day 09/01/2021 Active levothyroxine (SYNTHROID, LEVOTHROID) 175 MCG tablet Take 175 mcg by mouth 1 (one) time each day 10/08/2022 Active ergocalciferol 1.25 MG (36325 UT) capsule Take 50,000 Units by mouth [...] Due Date Last Done Comments Pneumococcal Vaccine: 50+ Ye ars (1 of 2 - PCV) 08/27/1954 Influenza Vaccine (#1) 2025 Hepatitis B Vaccine Aged Out No longe r eligible based on patient's age to complete this topic Insurance Medicare Medicare Care Teams Assisted Living Manager Relationship Specialty Start Date End Date Horacio Shelton MD PCP - General Internal Medicine 04/12/23
== END 2025-02-08 11:23 | disposition home or self-care (01) ==
PROVIDERS: PCP Family Medicine; Visit Provider Internal Medicine Nephrology
DX: I10 Essential (primary) hypertension (principal); N18.31 Chronic kidney disease, stage 3a; R30.0 Dysuria
CPT/HCPCS: 99214

== ENCOUNTER 2025-02-08 09:54 | Outpatient (REF) | payer MEDICARE, SELFPAY ==
[2025-02-08 13:24] LABS: MANUAL DIFF FLAG NO
[2025-02-08 13:38] LABS: Hematocrit 39.5 % (42.0-52.0); Hemoglobin 12.7 g/dl (14.0-18.0); Imm Gran Abs Auto 0.01 X10*3/uL (0.00-0.03); Imm Gran Pct Auto 0.3 % (0.0-0.4); Lymphocytes Absolute Auto 1.0 X10*3/uL (1.2-4.9); Mean Corpuscular HGB Conc 32.2 g/dl (31.0-36.0); Mean Corpuscular Hemoglobin 30.5 pg (27.0-33.0); Mean Corpuscular Volume 94.7 fL (80.0-98.0); NRBC Abs Auto 0.000 X10*3/uL (0.0-0.012); NRBC Pct Auto 0.0 /100WBC (0.0-0.2); Platelet Count 223 X10*3/uL (160-400); Red Blood Count 4.17 X10*6/uL (4.60-5.80); White Blood Count 3.2 X10*3/uL (4.8-10.8)
[2025-02-08 13:56] LABS: Anion Gap 9 (12-20); Blood Urea Nitrogen 20 mg/dL (9-16); Carbon Dioxide 26 mmol/L (22-29); Chloride 110 mmol/L (96-108); Estimated Glomerular Filt Rate 51; Potassium 4.5 mmol/L (3.3-5.1); Sodium 140 mmol/L (135-145)
== END 2025-02-08 09:55 | disposition home or self-care (01) ==
LOC: HO.HKASLDS 09:54
PROVIDERS: PCP Internal Medicine; Visit Provider Internal Medicine Nephrology
DX: I12.9 Hypertensive chronic kidney disease with stage 1 through stage 4 chronic kidney disease, or unspecified chronic kidney disease (principal); N18.31 Chronic kidney disease, stage 3a; R30.0 Dysuria
CPT/HCPCS: 36415; 80051; 82565; 84520; 85025; 87086; 99212